=== PATIENT | female | born 1985 | race African-American/Black ===

== ENCOUNTER 2019-09-08 15:55 | Inpatient (IN) | payer MEDICAID ==
[2019-09-08] MEDS ORDERED: Lactated Ringers 1,000 ML ONE (16:04)
[2019-09-08] MEDS ORDERED: Ondansetron 4 MG/2 ML SDV IVPUSH PRN (16:06)
[2019-09-08] MEDS ORDERED: Nalbuphine 10 MG/ML Syringe IM PRN (16:08)
--- NOTE | 2019-09-08 16:47 | PCM.LDHP ---
L&D History of Present Illness - General Date of Service: 09/08/19 Admit Problem/Dx: Patient Status Order with Admit Dx/Problem 09/08/19 16:06 Patient Status [ADT] Routine Admission Diagnosis/Problem Admission Diagnosis/Problem Source of Information: Patient History Limitations: Reports: No Limitations - History of Present Illness Introduction:: Patient is a 34 y/o at 21 4/7 wks who is admitted with previable labor. Cerclage placed on 09/04 due to findings of shortened cervix on anatomy US. Has been seen off and on for pain concerns, but acutely worsened this PM. Cerclage removed in clinic and noted to be 1 cm and 90% effaced with bulging lower uterine segment - Related Data Allergies/Adverse Reactions: Allergies Allergy/AdvReac Type Severity Reaction Status Date / Time No Known Allergies Allergy Verified 09/08/19 16:21 Home Medications: Home Meds Cyclobenzaprine [Flexeril] 5 mg PO TID 09/08/19 [History] Pnv No.95/Ferrous Fum/Folic AC [ Tablet] 1 tab PO DAILY 09/08/19 [ History] cephALEXin [Keflex] 500 mg PO Q6H 09/08/19 [History] Past Medical History : 2 Para: 0 LMP (Approximate): - Past Surgical History Female Surgical History: Reports: D&C, Other (See Below) (Craig Cerclage) Social & Family History - Tobacco Use Smoking Status *Q: Never Smoker - Alcohol Use Alcohol Use History: No - Recreational Drug Use Recreational Drug Use: No H&P Review of Systems - Review of Systems: Review Of Systems: See Below General: Reports: No Symptoms Pulmonary: Reports: No Symptoms Cardiovascular: Reports: No Symptoms Gastrointestinal: Reports: Abdominal Pain Genitourinary: Reports: Incontinence Musculoskeletal: Reports: Back Pain (significant swelling and discomfort over sight of spinal done for cerclage ) Psychiatric: Reports: No Symptoms L&D Exam - Exam Exam: See Below - Vital Signs Weight: 88.904 kg - OB Specific Contraction Intensity: Moderate to Strong Movement: Active Heart Tones: Present Heart Tones per Min: 160 - Holm Score Holm Score Cervix Position: Midposition Holm Score Consistency: Soft Holm Score Effacement: >80% Holm Score Dilation: 1-2 cm Holm Score 's Station: -1 ,0 Holm Score Total: 9 - Exam General: Alert, Oriented, Cooperative Lungs: Clear to Auscultation, Normal Respiratory Effort Cardiovascular: Regular Rate, Regular Rhythm GI/Abdominal Exam: Soft, Non-Tender Genitourinary: Normal external exam Extremities: Normal Inspection - Patient Data Lab Results Last 24 hrs: Laboratory Results - last 24 hr 09/08/19 09/08/19 Range/Units 16:22 16:22 WBC 15.19 H (3.98-10.04) K/mm3 RBC 4.09 (3.98-5.22) M/mm3 Hgb 11.4 (11.2-15.7) gm/dl Hct 34.4 (34.1-44.9) % MCV 84.1 (79.4-94.8) fl MCH 27.9 (25.6-32.2) pg MCHC 33.1 (32.2-35.5) g/dl RDW Std Deviation 41.2 (36.4-46.3) fL Plt Count 293 (182-369) K/mm3 MPV 10.7 (9.4-12.3) fl Neut % (Auto) 76.5 H (34.0-71.1) % Lymph % (Auto) 16.9 L (19.3-51.7) % [place] % (Auto) 6.0 (4.7-12.5) % Eos % (Auto) 0.1 L (0.7-5.8) Baso % (Auto) 0.1 (0.1-1.2) % Neut # (Auto) 11.62 H (1.56-6.13) K/mm3 Lymph # (Auto) 2.57 (1.18-3.74) K/mm3 [place] # (Auto) 0.91 H (0.24-0.36) K/mm3 Eos # (Auto) 0.02 L (0.04-0.36) K/mm3 Baso # (Auto) 0.01 (0.01-0.08) K/mm3 AST 53 H (15-37) U/L ALT 147 H (14-59) U/L Result Diagrams: 09/08/19 16:22 - Problem List (1) 21 weeks gestation of SNOMED Code(s): 81702471 ICD Code: Z3A.21 - 21 WEEKS GESTATION OF Status: Acute Current Visit: Yes (2) labor SNOMED Code(s): 8717484 ICD Code: O60.00 - LABOR WITHOUT DELIVERY, UNSPECIFIED TRIMESTER Status: Acute Current Visit: Yes Qualifiers: labor trimester: second trimester labor delivery status: with delivery in second trimester Fetus number: single or unspecified fetus Qualified Code(s): O60.12X0 - labor second trimester with delivery second trimester, not applicable or unspecified Problem List Initiated/Reviewed/Updated: Yes Orders Last 24hrs: Active Orders 24 hr Category Date Time Status Patient Status [ADT] Routine ADT 09/08/19 16:06 Active Uterine Contraction Monitor [RC] PER UNIT ROUTINE Care 09/08/19 16:06 Active Vaginal Exam [RC] PRN Care 09/08/19 16:06 Active Vital Signs [RC] PER UNIT ROUTINE Care 09/08/19 16:06 Active FIBRINOGEN [COAG] Routine Lab 09/08/19 16:22 Received INR,PT,PROTHROMBIN TIME [COAG] Routine Lab 09/08/19 16:22 Received PTT,PARTIAL THROMBOPLSTIN TIME [COAG] Routine Lab 09/08/19 16:22 Received TYPE AND SCREEN [BBK] Stat Lab 09/08/19 16:22 Received Lactated Ringers [Ringers, Lactated] 1,000 ml Med 09/08/19 16:15 Active IV ASDIRECTED Nalbuphine [Nubain] Med 09/08/19 16:08 Active 10 mg IM Q2H PRN Ondansetron [Zofran] Med 09/08/19 16:06 Active 4 mg IVPUSH Q6H PRN Medication Orders Lactated Ringer's (Ringers, Lactated) 1,000 mls @ 125 mls/hr IV ASDIRECTED ZIYAD Nalbuphine HCl (Nubain) 10 mg IM Q2H PRN PRN Reason: Pain Ondansetron HCl (Zofran) 4 mg IVPUSH Q6H PRN PRN Reason: Nausea/Vomiting Assessment/Plan Comment:: Patient with previous incidental shortened cervix and now with continued complaints of abdominal pain over last 2 days and findings of previable/ labor. Reviewed with patient unfortunately can not resuscitate at this gestational age. She expressed understanding. Will do CBC, LFT's, PTT/PTT, Fibrinogen, and T&S. Reviewed options for pain control and given amount of pain still present at site of spinal declines epidural. Will manage with IV morphine.
[2019-09-08] MEDS ORDERED: fentaNYL 100 MCG/2 ML SDV EPIDUR PRN (16:56)
[2019-09-08] MEDS ORDERED: ePHEDrine 50 MG/ML SDV IVPUSH PRN (16:56)
[2019-09-08] MEDS ORDERED: Bupivacaine/fentaNYL/NS 100 ML Bag EPIDUR PRN (16:56)
[2019-09-08] MEDS ORDERED: diphenhydrAMINE 50 MG/ML SDV IVPUSH PRN (16:56)
[2019-09-08] MEDS ORDERED: Morphine 10 MG/ML SDV IVPUSH PRN (17:05)
[2019-09-08] MEDS ORDERED: Morphine 2 MG/ML Syringe ONE ×2 (17:06→18:24)
[2019-09-08] MEDS ORDERED: Misoprostol 200 MCG Tab PO STA (17:06)
[2019-09-08] MEDS ORDERED: Misoprostol 200 MCG Tab ONE ×2 (17:07→18:11)
[2019-09-08] MEDS ORDERED: Oxytocin/Lactated Ringers 10 UNIT/1,000 ML BAG IV SCH ×2 (17:15→19:15)
[2019-09-08] MEDS ORDERED: Misoprostol 200 MCG Tab VAG STA (17:36)
[2019-09-08] MEDS: Lactated Ringers 1,000 ML IV SCH ×3 (18:30→18:34)
[2019-09-08] MEDS ORDERED: Ibuprofen 600 MG Tab PO PRN (20:45)
[2019-09-08] MEDS ORDERED: Benzocaine/Menthol 20%-0.5% Spray 56 GM Canister TOP PRN (20:45)
[2019-09-08] MEDS ORDERED: Acetaminophen 325 MG Tab PO PRN (20:45)
[2019-09-08] MEDS ORDERED: Docusate Sodium 100 MG Cap PO PRN (20:45)
[2019-09-08] MEDS ORDERED: Witch Hazel Medicated Pads 40/Jar TOP PRN (20:45)
--- NOTE | 2019-09-08 21:51 | PCM.SN.2 ---
- Free Text/Narrative Note: [id number] Patient 5 cm with fetus noted to be trying to deliver through cervix. Patient leaking clear fluid at this time, but also with a large amount of bleeding noted on exam. Will give 400 mcg of cytotec to augment labor given bleeding. Will reassess as needed. Cynthia Christiansen
--- NOTE | 2019-09-08 21:59 | PCM.DEL ---
L & D Note - General Info Date of Service: 09/08/19 - Delivery Note Delivery Outcome: Livebirth Infant Delivery Method: Spontaneous Vaginal Delivery-Single Infant Delivery Mode: Spontaneous Presentation: Vertex Anesthesia Type: Other (see below) (IV morphine) Amniotic Fluid Description: Clear Episiotomy Type: None Laceration: None Placenta: Intact, Spontaneous Cord: 3 Vessels Estimated Blood Loss: 300 Score 1 min: 2 Score 5 min: 1 Score 10 min: 1 Delivery Comments (Free Text/Narrative):: Patient checked and found to be near complete and with parts low in vagina. Encouraged to push and deliver occurred quickly. Cord clamped and cut. 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 Patient given 600 mcg of buccal cytotec. Delivery of placenta occurred shortly thereafter. No lacerations noted. Baby delivered at 1816. No further signs of life at 1952. Time of noted. Baby weight of 402 grams. - General Info Date of Service: 09/08/19 - Patient Data Vitals - Most Recent: Last Vital Signs Temp 37.4 C 09/08/19 20:07 Pulse Resp 14 09/08/19 20:07 BP 140/46 L 09/08/19 20:07 Pulse Ox 99 09/08/19 20:07 Weight - Most Recent: 88.904 kg Lab Results Last 24 Hours: Laboratory Results - last 24 hr 09/08/19 09/08/19 09/08/19 Range/Units 16:22 16:22 16:22 WBC 15.19 H (3.98-10.04) K/mm3 RBC 4.09 (3.98-5.22) M/mm3 Hgb 11.4 (11.2-15.7) gm/dl Hct 34.4 (34.1-44.9) % MCV 84.1 (79.4-94.8) fl MCH 27.9 (25.6-32.2) pg MCHC 33.1 (32.2-35.5) g/dl RDW Std Deviation 41.2 (36.4-46.3) fL Plt Count 293 (182-369) K/mm3 MPV 10.7 (9.4-12.3) fl Neut % (Auto) 76.5 H (34.0-71.1) % Lymph % (Auto) 16.9 L (19.3-51.7) % [place] % (Auto) 6.0 (4.7-12.5) % Eos % (Auto) 0.1 L (0.7-5.8) Baso % (Auto) 0.1 (0.1-1.2) % Neut # (Auto) 11.62 H (1.56-6.13) K/mm3 Lymph # (Auto) 2.57 (1.18-3.74) K/mm3 [place] # (Auto) 0.91 H (0.24-0.36) K/mm3 Eos # (Auto) 0.02 L (0.04-0.36) K/mm3 Baso # (Auto) 0.01 (0.01-0.08) K/mm3 PT 10.3 (9.7-12.0) SECONDS INR 0.94 APTT 25 (22-31) SECONDS Fibrinogen 678 H (187-446) mg/dL AST (15-37) U/L ALT (14-59) U/L Blood Type B POSITIVE Gel Antibody Screen Negative 09/08/19 Range/Units 16:22 WBC (3.98-10.04) K/mm3 RBC (3.98-5.22) M/mm3 Hgb (11.2-15.7) gm/dl Hct (34.1-44.9) % MCV (79.4-94.8) fl MCH (25.6-32.2) pg MCHC (32.2-35.5) g/dl RDW Std Deviation (36.4-46.3) fL Plt Count (182-369) K/mm3 MPV (9.4-12.3) fl Neut % (Auto) (34.0-71.1) % Lymph % (Auto) (19.3-51.7) % [place] % (Auto) (4.7-12.5) % Eos % (Auto) (0.7-5.8) Baso % (Auto) (0.1-1.2) % Neut # (Auto) (1.56-6.13) K/mm3 Lymph # (Auto) (1.18-3.74) K/mm3 [place] # (Auto) (0.24-0.36) K/mm3 Eos # (Auto) (0.04-0.36) K/mm3 Baso # (Auto) (0.01-0.08) K/mm3 PT (9.7-12.0) SECONDS INR APTT (22-31) SECONDS Fibrinogen (187-446) mg/dL AST 53 H (15-37) U/L ALT 147 H (14-59) U/L Blood Type Gel Antibody Screen Med Orders - Current: Current Medications Acetaminophen (Tylenol) 650 mg PO Q4H PRN PRN Reason: mild pain or fever Benzocaine/Menthol (Dermoplast Pain Relief [place]) 0 gm TOP ASDIRECTED PRN PRN Reason: Perineal Comfort Measure Docusate Sodium (Colace) 100 mg PO BID PRN PRN Reason: Constipation Oxytocin/Lactated Ringer's (Pitocin In Lr 10 Units/1,000 Ml) 10 unit in 1,000 mls @ 3,000 mls/hr IV TITRATE ZIYAD; Protocol Last Admin: 09/08/19 19:30 Dose: 500 munits/min, 500 mls/hr Ibuprofen (Motrin) 600 mg PO Q6H PRN PRN Reason: Mild pain or fever Witch Dana (Tucks) 1 pad TOP ASDIRECTED PRN PRN Reason: Perineal Comfort Measure Discontinued Medications Diphenhydramine HCl (Benadryl) 25 mg IVPUSH Q6H PRN PRN Reason: pruritis Ephedrine Sulfate (Ephedrine Sulfate) 5 mg IVPUSH ASDIRECTED PRN PRN Reason: Hypotension Fentanyl (Sublimaze) 100 mcg EPIDUR Q3H PRN PRN Reason: Pain Fentanyl/Bupivacaine HCl (Fentanyl/Bupivacaine/Ns 2 Mcg-0.125% 100 Ml) 100 ml EPIDUR ASDIRECTED PRN PRN Reason: Pain Lactated Ringer's (Ringers, Lactated) Confirm Administered Dose 1,000 mls @ as directed .ROUTE .STK-MED ONE Stop: 09/08/19 16:05 Last Admin: 09/08/19 16:22 Dose: Not Given Lactated Ringer's (Ringers, Lactated) 1,000 mls @ 125 mls/hr IV ASDIRECTED ZIYAD Last Admin: 09/08/19 18:34 Dose: 125 mls/hr Oxytocin/Lactated Ringer's (Pitocin In Lr 10 Units/1,000 Ml) 10 unit in 1,000 mls @ 500 mls/hr IV TITRATE ZIYAD; Protocol Misoprostol (Cytotec) 600 mcg PO NOW STA Stop: 09/08/19 17:07 Last Admin: 09/08/19 18:53 Dose: 600 mcg Misoprostol (Cytotec) Confirm Administered Dose 600 mcg .ROUTE .STK-MED ONE Stop: 09/08/19 17:08 Last Admin: 09/08/19 17:50 Dose: Not Given Misoprostol (Cytotec) Confirm Administered Dose 400 mcg .ROUTE .STK-MED ONE Stop: 09/08/19 18:12 Last Admin: 09/08/19 19:17 Dose: Not Given Misoprostol (Cytotec) 400 mcg VAG NOW STA Stop: 09/08/19 17:37 Last Admin: 09/08/19 18:12 Dose: 400 mcg Morphine Sulfate (Morphine) 6 mg IVPUSH Q1H PRN PRN Reason: Pain Last Admin: 09/08/19 18:25 Dose: 6 mg Morphine Sulfate (Morphine) Confirm Administered Dose 2 mg .ROUTE .STK-MED ONE Stop: 09/08/19 17:07 Last Admin: 09/08/19 17:50 Dose: Not Given Morphine Sulfate (Morphine) Confirm Administered Dose 6 mg .ROUTE .STK-MED ONE Stop: 09/08/19 18:25 Last Admin: 09/08/19 17:00 Dose: 6 mg Nalbuphine HCl (Nubain) 10 mg IM Q2H PRN PRN Reason: Pain Last Admin: 09/08/19 18:34 Dose: 10 mg Ondansetron HCl (Zofran) 4 mg IVPUSH Q6H PRN PRN Reason: Nausea/Vomiting - Problem List & Annotations (1) 21 weeks gestation of SNOMED Code(s): 32622195 Code(s): Z3A.21 - 21 WEEKS GESTATION OF Status: Acute Current Visit: Yes (2) labor SNOMED Code(s): 4958170 Code(s): O60.00 - LABOR WITHOUT DELIVERY, UNSPECIFIED TRIMESTER Status: Acute Current Visit: Yes Qualifiers: labor trimester: second trimester labor delivery status: with delivery in second trimester Fetus number: single or unspecified fetus Qualified Code(s): O60.12X0 - labor second trimester with delivery second trimester, not applicable or unspecified (3) Vaginal delivery SNOMED Code(s): 793241254 Code(s): O80 - ENCOUNTER FOR FULL-TERM UNCOMPLICATED DELIVERY Status: Acute Current Visit: Yes - Problem List Review Problem List Initiated/Reviewed/Updated: Yes - My Orders Last 24 Hours: My Active Orders 09/08/19 16:06 Uterine Contraction Monitor [RC] PER UNIT ROUTINE Vaginal Exam [RC] PRN 09/08/19 17:44 PATIENT RETYPE [BBK] Routine 09/08/19 19:04 Resuscitation Status Routine 09/08/19 19:15 Oxytocin/Lactated Ringers [Pitocin in LR 10 Units/1,000 ML] 10 unit in 1,000 ml IV TITRATE 09/08/19 20:45 Activity as Tolerated [RC] PER UNIT ROUTINE Vital Signs [RC] ASDIRECTED Acetaminophen [Tylenol] 650 mg PO Q4H PRN Benzocaine/Menthol [Dermoplast Pain Relief [place]] See Dose Instructions TOP ASDIRECTED PRN Docusate Sodium [Colace] 100 mg PO BID PRN Ibuprofen [Motrin] 600 mg PO Q6H PRN witch Dana [Tucks] 1 pad TOP ASDIRECTED PRN Assess Lochia [WOMSER] Per Unit Routine Assess Uterine Involution [WOMSER] Per Unit Routine Breast Pump [WOMSER] Per Unit Routine Heat Therapy [OM.PC] PRN Ice Therapy [OM.PC] Per Unit Routine Perineal Care [OM.PC] Per Unit Routine Peripheral IV Discontinue [OM.PC] Routine Sitz Bath [OM.PC] Per Unit Routine 09/08/19 Dinner Regular Diet [DIET] 09/09/19 20:45 Heat Therapy [OM.PC] PRN - Assessment Assessment:: PPD#0 - Plan Plan:: Routine cares Will collect mementos for mother from her daughter Discharge home in am
--- NOTE | 2019-09-09 06:52 | PCM.PNPP ---
- General Info Date of Service: 09/09/19 Functional Status: Reports: Pain Controlled, Tolerating Diet, Ambulating, Urinating - Review of Systems General: Reports: No Symptoms Pulmonary: Reports: No Symptoms Cardiovascular: Reports: No Symptoms Gastrointestinal: Reports: No Symptoms Genitourinary: Reports: No Symptoms Musculoskeletal: Reports: No Symptoms Neurological: Reports: No Symptoms - Patient Data Vital Signs - Most Recent: Last Vital Signs Temp 37.2 C 09/09/19 03:00 Pulse 102 H 09/09/19 03:00 Resp 16 09/09/19 03:00 BP 93/57 L 09/09/19 03:00 Pulse Ox 96 09/09/19 03:00 Weight - Most Recent: 88.904 kg Lab Results - Last 24 Hours: Laboratory Results - last 24 hr 09/08/19 09/08/19 09/08/19 Range/Units 16:22 16:22 16:22 WBC 15.19 H (3.98-10.04) K/mm3 RBC 4.09 (3.98-5.22) M/mm3 Hgb 11.4 (11.2-15.7) gm/dl Hct 34.4 (34.1-44.9) % MCV 84.1 (79.4-94.8) fl MCH 27.9 (25.6-32.2) pg MCHC 33.1 (32.2-35.5) g/dl RDW Std Deviation 41.2 (36.4-46.3) fL Plt Count 293 (182-369) K/mm3 MPV 10.7 (9.4-12.3) fl Neut % (Auto) 76.5 H (34.0-71.1) % Lymph % (Auto) 16.9 L (19.3-51.7) % [place] % (Auto) 6.0 (4.7-12.5) % Eos % (Auto) 0.1 L (0.7-5.8) Baso % (Auto) 0.1 (0.1-1.2) % Neut # (Auto) 11.62 H (1.56-6.13) K/mm3 Lymph # (Auto) 2.57 (1.18-3.74) K/mm3 [place] # (Auto) 0.91 H (0.24-0.36) K/mm3 Eos # (Auto) 0.02 L (0.04-0.36) K/mm3 Baso # (Auto) 0.01 (0.01-0.08) K/mm3 PT 10.3 (9.7-12.0) SECONDS INR 0.94 APTT 25 (22-31) SECONDS Fibrinogen 678 H (187-446) mg/dL AST (15-37) U/L ALT (14-59) U/L Blood Type B POSITIVE Gel Antibody Screen Negative 09/08/19 Range/Units 16:22 WBC (3.98-10.04) K/mm3 RBC (3.98-5.22) M/mm3 Hgb (11.2-15.7) gm/dl Hct (34.1-44.9) % MCV (79.4-94.8) fl MCH (25.6-32.2) pg MCHC (32.2-35.5) g/dl RDW Std Deviation (36.4-46.3) fL Plt Count (182-369) K/mm3 MPV (9.4-12.3) fl Neut % (Auto) (34.0-71.1) % Lymph % (Auto) (19.3-51.7) % [place] % (Auto) (4.7-12.5) % Eos % (Auto) (0.7-5.8) Baso % (Auto) (0.1-1.2) % Neut # (Auto) (1.56-6.13) K/mm3 Lymph # (Auto) (1.18-3.74) K/mm3 [place] # (Auto) (0.24-0.36) K/mm3 Eos # (Auto) (0.04-0.36) K/mm3 Baso # (Auto) (0.01-0.08) K/mm3 PT (9.7-12.0) SECONDS INR APTT (22-31) SECONDS Fibrinogen (187-446) mg/dL AST 53 H (15-37) U/L ALT 147 H (14-59) U/L Blood Type Gel Antibody Screen Med Orders - Current: Current Medications Acetaminophen (Tylenol) 650 mg PO Q4H PRN PRN Reason: mild pain or fever Benzocaine/Menthol (Dermoplast Pain Relief [place]) 0 gm TOP ASDIRECTED PRN PRN Reason: Perineal Comfort Measure Docusate Sodium (Colace) 100 mg PO BID PRN PRN Reason: Constipation Oxytocin/Lactated Ringer's (Pitocin In Lr 10 Units/1,000 Ml) 10 unit in 1,000 mls @ 3,000 mls/hr IV TITRATE ZIYAD; Protocol Last Admin: 09/08/19 19:30 Dose: 500 munits/min, 500 mls/hr Ibuprofen (Motrin) 600 mg PO Q6H PRN PRN Reason: Mild pain or fever Last Admin: 09/09/19 00:32 Dose: 600 mg Witch Dana (Tucks) 1 pad TOP ASDIRECTED PRN PRN Reason: Perineal Comfort Measure Discontinued Medications Diphenhydramine HCl (Benadryl) 25 mg IVPUSH Q6H PRN PRN Reason: pruritis Ephedrine Sulfate (Ephedrine Sulfate) 5 mg IVPUSH ASDIRECTED PRN PRN Reason: Hypotension Fentanyl (Sublimaze) 100 mcg EPIDUR Q3H PRN PRN Reason: Pain Fentanyl/Bupivacaine HCl (Fentanyl/Bupivacaine/Ns 2 Mcg-0.125% 100 Ml) 100 ml EPIDUR ASDIRECTED PRN PRN Reason: Pain Lactated Ringer's (Ringers, Lactated) Confirm Administered Dose 1,000 mls @ as directed .ROUTE .STK-MED ONE Stop: 09/08/19 16:05 Last Admin: 09/08/19 16:22 Dose: Not Given Lactated Ringer's (Ringers, Lactated) 1,000 mls @ 125 mls/hr IV ASDIRECTED ZIYAD Last Admin: 09/08/19 18:34 Dose: 125 mls/hr Oxytocin/Lactated Ringer's (Pitocin In Lr 10 Units/1,000 Ml) 10 unit in 1,000 mls @ 500 mls/hr IV TITRATE ZIYAD; Protocol Misoprostol (Cytotec) 600 mcg PO NOW STA Stop: 09/08/19 17:07 Last Admin: 09/08/19 18:53 Dose: 600 mcg Misoprostol (Cytotec) Confirm Administered Dose 600 mcg .ROUTE .STK-MED ONE Stop: 09/08/19 17:08 Last Admin: 09/08/19 17:50 Dose: Not Given Misoprostol (Cytotec) Confirm Administered Dose 400 mcg .ROUTE .STK-MED ONE Stop: 09/08/19 18:12 Last Admin: 09/08/19 19:17 Dose: Not Given Misoprostol (Cytotec) 400 mcg VAG NOW STA Stop: 09/08/19 17:37 Last Admin: 09/08/19 18:12 Dose: 400 mcg Morphine Sulfate (Morphine) 6 mg IVPUSH Q1H PRN PRN Reason: Pain Last Admin: 09/08/19 18:25 Dose: 6 mg Morphine Sulfate (Morphine) Confirm Administered Dose 2 mg .ROUTE .STK-MED ONE Stop: 09/08/19 17:07 Last Admin: 09/08/19 17:50 Dose: Not Given Morphine Sulfate (Morphine) Confirm Administered Dose 6 mg .ROUTE .STK-MED ONE Stop: 09/08/19 18:25 Last Admin: 09/08/19 17:00 Dose: 6 mg Nalbuphine HCl (Nubain) 10 mg IM Q2H PRN PRN Reason: Pain Last Admin: 09/08/19 18:34 Dose: 10 mg Ondansetron HCl (Zofran) 4 mg IVPUSH Q6H PRN PRN Reason: Nausea/Vomiting - Interaction Infant Disposition, : Not Applicable Support Person: Other (see below) - Recovery Exam Fundal Tone: Firm Fundal Level: 1 Fingerbreadths Below Umbilicus Fundal Placement: Midline Lochia Amount: Scant Perineum Description: Intact, Minimal Bruising/Swelling Bladder Status: Voiding - Exam General: Alert, Oriented, Cooperative GI/Abdominal Exam: Soft, Non-Tender Extremities: Normal Inspection - Problem List & Annotations (1) 21 weeks gestation of SNOMED Code(s): 87685509 Code(s): Z3A.21 - 21 WEEKS GESTATION OF Status: Acute (2) labor SNOMED Code(s): 0468015 Code(s): O60.00 - LABOR WITHOUT DELIVERY, UNSPECIFIED TRIMESTER Status: Acute Qualifiers: labor trimester: second trimester labor delivery status: with delivery in second trimester Fetus number: single or unspecified fetus Qualified Code(s): O60.12X0 - labor second trimester with delivery second trimester, not applicable or unspecified (3) Vaginal delivery SNOMED Code(s): 879110242 Code(s): O80 - ENCOUNTER FOR FULL-TERM UNCOMPLICATED DELIVERY Status: Acute - Problem List Review Problem List Initiated/Reviewed/Updated: Yes - My Orders Last 24 Hours: My Active Orders 09/08/19 16:06 Uterine Contraction Monitor [RC] PER UNIT ROUTINE Vaginal Exam [RC] PRN 09/08/19 19:04 Resuscitation Status Routine 09/08/19 19:15 Oxytocin/Lactated Ringers [Pitocin in LR 10 Units/1,000 ML] 10 unit in 1,000 ml IV TITRATE 09/08/19 20:45 Activity as Tolerated [RC] PER UNIT ROUTINE Vital Signs [RC] 03,09,15,21 Acetaminophen [Tylenol] 650 mg PO Q4H PRN Benzocaine/Menthol [Dermoplast Pain Relief [place]] See Dose Instructions TOP ASDIRECTED PRN Docusate Sodium [Colace] 100 mg PO BID PRN Ibuprofen [Motrin] 600 mg PO Q6H PRN witch Dana [Tucks] 1 pad TOP ASDIRECTED PRN Assess Lochia [WOMSER] Per Unit Routine Assess Uterine Involution [WOMSER] Per Unit Routine Breast Pump [WOMSER] Per Unit Routine Heat Therapy [OM.PC] PRN Ice Therapy [OM.PC] Per Unit Routine Perineal Care [OM.PC] Per Unit Routine Peripheral IV Discontinue [OM.PC] Routine Sitz Bath [OM.PC] Per Unit Routine 09/08/19 Dinner Regular Diet [DIET] 09/09/19 20:45 Heat Therapy [OM.PC] PRN - Assessment Assessment:: PPD#1 - Plan Plan:: Routine care Will discharge home today Follow up in 3 weeks
--- NOTE | 2019-09-09 06:55 | PCM.DCSUM1 ---
Discharge Summary - Discharge Data Discharge Date: 09/09/19 Discharge Disposition: Home, Self-Care 01 Condition: Good - Referral to Home Health Primary Care Physician: Cynthia Christiansen MD - Discharge Diagnosis/Problem(s) (1) 21 weeks gestation of SNOMED Code(s): 97814088 ICD Code: Z3A.21 - 21 WEEKS GESTATION OF Status: Acute (2) labor SNOMED Code(s): 4622277 ICD Code: O60.00 - LABOR WITHOUT DELIVERY, UNSPECIFIED TRIMESTER Status: Acute Qualifiers: labor trimester: second trimester labor delivery status: with delivery in second trimester Fetus number: single or unspecified fetus Qualified Code(s): O60.12X0 - labor second trimester with delivery second trimester, not applicable or unspecified (3) Vaginal delivery SNOMED Code(s): 349935426 ICD Code: O80 - ENCOUNTER FOR FULL-TERM UNCOMPLICATED DELIVERY Status: Acute - Patient Summary/Data Complications: None Consults: None Hospital Course: Patient is a 34 y/o at 21 4/7 wks who had previously documented cervical shortening on anatomy US. Had a cerclage placed, but afterwards continued to have abdominal pain. Seen in clinic with obvious signs of labor and had cerclage removed. Was then admitted for labor management. Overall did well and did end up delivering her daughter who was born alive. See delivery note for full details. did well and was discharged home on PPD#1 - Patient Instructions Diet: Regular Diet as Tolerated Activity: As Tolerated Activity, Other: Pelvic rest for 6 weeks Driving: May Drive Today Showering/Bathing: May Shower Showering/Bathing, Other: May Bathe Notify Provider of: Fever, Increased Pain, Swelling and Redness, Drainage, Nausea and/or Vomiting - Discharge Plan *PRESCRIPTION DRUG MONITORING PROGRAM REVIEWED*: No *COPY OF PRESCRIPTION DRUG MONITORING REPORT IN PATIENT WOOD: No Home Medications: Home Meds Pnv No.95/Ferrous Fum/Folic AC [ Tablet] 1 tab PO DAILY 09/08/19 [ History] Docusate Sodium [Colace] 100 mg PO BID PRN cap 09/09/19 [Rx] Ibuprofen [Motrin] 600 mg PO Q6H PRN tablet 09/09/19 [Rx] Patient Handouts: Vaginal Delivery, Loss, Care After Referrals: Cynthia Christiansen MD [Primary Care Provider] - (3 weeks for check, please call for appointment. ) - Discharge Summary/Plan Comment DC Time >30 min.: No - Patient Data Vitals - Most Recent: Last Vital Signs Temp 37.2 C 09/09/19 03:00 Pulse 102 H 09/09/19 03:00 Resp 16 09/09/19 03:00 BP 93/57 L 09/09/19 03:00 Pulse Ox 96 09/09/19 03:00 Weight - Most Recent: 88.904 kg Lab Results - Last 24 hrs: Laboratory Results - last 24 hr 09/08/19 09/08/19 09/08/19 Range/Units 16:22 16:22 16:22 WBC 15.19 H (3.98-10.04) K/mm3 RBC 4.09 (3.98-5.22) M/mm3 Hgb 11.4 (11.2-15.7) gm/dl Hct 34.4 (34.1-44.9) % MCV 84.1 (79.4-94.8) fl MCH 27.9 (25.6-32.2) pg MCHC 33.1 (32.2-35.5) g/dl RDW Std Deviation 41.2 (36.4-46.3) fL Plt Count 293 (182-369) K/mm3 MPV 10.7 (9.4-12.3) fl Neut % (Auto) 76.5 H (34.0-71.1) % Lymph % (Auto) 16.9 L (19.3-51.7) % [place] % (Auto) 6.0 (4.7-12.5) % Eos % (Auto) 0.1 L (0.7-5.8) Baso % (Auto) 0.1 (0.1-1.2) % Neut # (Auto) 11.62 H (1.56-6.13) K/mm3 Lymph # (Auto) 2.57 (1.18-3.74) K/mm3 [place] # (Auto) 0.91 H (0.24-0.36) K/mm3 Eos # (Auto) 0.02 L (0.04-0.36) K/mm3 Baso # (Auto) 0.01 (0.01-0.08) K/mm3 PT 10.3 (9.7-12.0) SECONDS INR 0.94 APTT 25 (22-31) SECONDS Fibrinogen 678 H (187-446) mg/dL AST (15-37) U/L ALT (14-59) U/L Blood Type B POSITIVE Gel Antibody Screen Negative 09/08/19 Range/Units 16:22 WBC (3.98-10.04) K/mm3 RBC (3.98-5.22) M/mm3 Hgb (11.2-15.7) gm/dl Hct (34.1-44.9) % MCV (79.4-94.8) fl MCH (25.6-32.2) pg MCHC (32.2-35.5) g/dl RDW Std Deviation (36.4-46.3) fL Plt Count (182-369) K/mm3 MPV (9.4-12.3) fl Neut % (Auto) (34.0-71.1) % Lymph % (Auto) (19.3-51.7) % [place] % (Auto) (4.7-12.5) % Eos % (Auto) (0.7-5.8) Baso % (Auto) (0.1-1.2) % Neut # (Auto) (1.56-6.13) K/mm3 Lymph # (Auto) (1.18-3.74) K/mm3 [place] # (Auto) (0.24-0.36) K/mm3 Eos # (Auto) (0.04-0.36) K/mm3 Baso # (Auto) (0.01-0.08) K/mm3 PT (9.7-12.0) SECONDS INR APTT (22-31) SECONDS Fibrinogen (187-446) mg/dL AST 53 H (15-37) U/L ALT 147 H (14-59) U/L Blood Type Gel Antibody Screen Med Orders - Current: Current Medications Acetaminophen (Tylenol) 650 mg PO Q4H PRN PRN Reason: mild pain or fever Benzocaine/Menthol (Dermoplast Pain Relief [place]) 0 gm TOP ASDIRECTED PRN PRN Reason: Perineal Comfort Measure Docusate Sodium (Colace) 100 mg PO BID PRN PRN Reason: Constipation Oxytocin/Lactated Ringer's (Pitocin In Lr 10 Units/1,000 Ml) 10 unit in 1,000 mls @ 3,000 mls/hr IV TITRATE ZIYAD; Protocol Last Admin: 09/08/19 19:30 Dose: 500 munits/min, 500 mls/hr Ibuprofen (Motrin) 600 mg PO Q6H PRN PRN Reason: Mild pain or fever Last Admin: 09/09/19 00:32 Dose: 600 mg Witch Shyla (Tucks) 1 pad TOP ASDIRECTED PRN PRN Reason: Perineal Comfort Measure Discontinued Medications Diphenhydramine HCl (Benadryl) 25 mg IVPUSH Q6H PRN PRN Reason: pruritis Ephedrine Sulfate (Ephedrine Sulfate) 5 mg IVPUSH ASDIRECTED PRN PRN Reason: Hypotension Fentanyl (Sublimaze) 100 mcg EPIDUR Q3H PRN PRN Reason: Pain Fentanyl/Bupivacaine HCl (Fentanyl/Bupivacaine/Ns 2 Mcg-0.125% 100 Ml) 100 ml EPIDUR ASDIRECTED PRN PRN Reason: Pain Lactated Ringer's (Ringers, Lactated) Confirm Administered Dose 1,000 mls @ as directed .ROUTE .STK-MED ONE Stop: 09/08/19 16:05 Last Admin: 09/08/19 16:22 Dose: Not Given Lactated Ringer's (Ringers, Lactated) 1,000 mls @ 125 mls/hr IV ASDIRECTED ZIYAD Last Admin: 09/08/19 18:34 Dose: 125 mls/hr Oxytocin/Lactated Ringer's (Pitocin In Lr 10 Units/1,000 Ml) 10 unit in 1,000 mls @ 500 mls/hr IV TITRATE ZIYAD; Protocol Misoprostol (Cytotec) 600 mcg PO NOW STA Stop: 09/08/19 17:07 Last Admin: 09/08/19 18:53 Dose: 600 mcg Misoprostol (Cytotec) Confirm Administered Dose 600 mcg .ROUTE .STK-MED ONE Stop: 09/08/19 17:08 Last Admin: 09/08/19 17:50 Dose: Not Given Misoprostol (Cytotec) Confirm Administered Dose 400 mcg .ROUTE .STK-MED ONE Stop: 09/08/19 18:12 Last Admin: 09/08/19 19:17 Dose: Not Given Misoprostol (Cytotec) 400 mcg VAG NOW STA Stop: 09/08/19 17:37 Last Admin: 09/08/19 18:12 Dose: 400 mcg Morphine Sulfate (Morphine) 6 mg IVPUSH Q1H PRN PRN Reason: Pain Last Admin: 09/08/19 18:25 Dose: 6 mg Morphine Sulfate (Morphine) Confirm Administered Dose 2 mg .ROUTE .STK-MED ONE Stop: 09/08/19 17:07 Last Admin: 09/08/19 17:50 Dose: Not Given Morphine Sulfate (Morphine) Confirm Administered Dose 6 mg .ROUTE .STK-MED ONE Stop: 09/08/19 18:25 Last Admin: 09/08/19 17:00 Dose: 6 mg Nalbuphine HCl (Nubain) 10 mg IM Q2H PRN PRN Reason: Pain Last Admin: 09/08/19 18:34 Dose: 10 mg Ondansetron HCl (Zofran) 4 mg IVPUSH Q6H PRN PRN Reason: Nausea/Vomiting
== END 2019-09-09 11:15 | disposition home or self-care (01) | DRG 807 ==
LOC: JD.ED 15:55 → JD.OBCHECK 15:55 → JD.OB 15:56 → EDSTATUS 16:03 → OBSVTOIN 18:51 → JD.OB 18:52
PROVIDERS: ADMIT Obstetrics & Gynecology; ATTEND Obstetrics & Gynecology
PROC: 10E0XZZ Delivery of Products of Conception, External Approach (ICD-10-PCS; principal; 2019-09-08)
DX: O60.12X0 Preterm labor second trimester with preterm delivery second trimester, not applicable or unspecified (principal); Z37.0 Single live birth; Z3A.21 21 weeks gestation of pregnancy
CPT/HCPCS: 36415; 59409; 84450; 84460; 85025; 85384; 85610; 85730; 86850; 86900; 86901; A9270-GY; J2270; J2300; J2590; J7120

== ENCOUNTER 2019-10-05 11:33 | Observation (INO) | payer SELFPAY ==
[2019-10-05] MEDS ORDERED: Alum Hydrox/Mag Hydrox/Simeth 30 ML, Lidocaine 2% 15 ML PO ONE ×2 (12:15)
--- NOTE | 2019-10-05 12:21 | EDM.PDOC ---
ED HPI GENERAL MEDICAL PROBLEM - General Chief Complaint: Abdominal Pain Stated Complaint: STOMACH PAIN Time Seen by Provider: 10/05/19 11:58 Source of Information: Reports: Patient, Old Records (miscarriage from 09/07), RN Notes Reviewed History Limitations: Reports: No Limitations - History of Present Illness INITIAL COMMENTS - FREE TEXT/NARRATIVE: Patient is a 34-year-old female who presents to the ED for evaluation of her stomach pain. Patient notes that this developed at about 10 AM, and has been steady and sharp, and has not relented since that has been present. Patient notes that she did eat breakfast at around 9 AM, and does not recall eating fatty foods. She denies any nausea or vomiting with this. She states she did have a bowel movement this morning and this was normal for her. Patient notes that she is having a small amount of creamy colored vaginal discharge that is blood-tinged. She has had a recent spontaneous miscarriage at 21 weeks gestation, on 07 September, that she states went uneventful. Patient denies any dysuria, frequency or urgency, any fevers or chills, cough or shortness of breath, she denies any history of heartburn or ulcers. She did not take any sort of pain medication for this. Patient denies any abdominal surgeries that she has had, states that she did have a cerclage placed on September 04 for her cervical insufficiency, but had the resultant spontaneous miscarriage on September 07. Abdomen Pain Score (Numeric/FACES): 8 - Related Data Allergies Allergy/AdvReac Type Severity Reaction Status Date / Time No Known Allergies Allergy Verified 09/08/19 16:21 Home Meds: Home Meds Docusate Sodium [Colace] 100 mg PO BID PRN cap 09/09/19 [Rx] 147/Iron/Folic Acid [Azesco Tablet] 1 tab PO DAILY 10/05/19 [History] 95/Iron Fum/Folic/Dha [ + Dha Combo Pack] 1 tab PO DAILY 10/05/19 [History] Past Medical History - Past Health History Medical/Surgical History: Denies Medical/Surgical History WELCOME HOSTESS History: Reports: , Spontaneous , Other (See Below) : 2 Para: 0 Other WELCOME HOSTESS History: miscarriage at 21 weeks gestation 09/08/2019 - Past Surgical History Female Surgical History: Reports: D&C Social & Family History - Family History Family Medical History: Noncontributory - Tobacco Use Smoking Status *Q: Never Smoker - Caffeine Use Caffeine Use: Reports: None - Recreational Drug Use Recreational Drug Use: No ED ROS GENERAL - Review of Systems Review Of Systems: Comprehensive ROS is negative, except as noted in HPI. ED EXAM, GI/ABD - Physical Exam Exam: See Below Exam Limited By: No Limitations General Appearance: Alert, WD/WN, No Apparent Distress Eyes: Bilateral: Normal Appearance Ears: Normal External Exam Nose: Normal Inspection Throat/Mouth: Normal Inspection, Normal Lips, Normal Teeth, Normal Gums, Normal Oropharynx, Normal Voice, No Airway Compromise Head: Atraumatic, Normocephalic Neck: Normal Inspection Respiratory/Chest: No Respiratory Distress, Lungs Clear, Normal Breath Sounds, No Accessory Muscle Use, Chest Non-Tender Cardiovascular: Normal Peripheral Pulses, Regular Rate, Rhythm, No Murmur GI/Abdominal Exam: Normal Bowel Sounds, Soft, Non-Tender, No Distention, No Mass Extremities: Normal Inspection, Normal Capillary Refill Neurological: Alert, Oriented, Normal Cognition, No Motor/Sensory Deficits Psychiatric: Normal Affect, Normal Mood Skin Exam: Warm, Dry, Intact, Normal Color, No Rash Course - Vital Signs Last Recorded V/S: Last Vital Signs Temp 7.9 F L 10/05/19 12:06 Pulse 90 10/05/19 12:06 Resp 20 10/05/19 12:06 BP 120/83 10/05/19 12:06 Pulse Ox 100 10/05/19 12:06 - Orders/Labs/Meds Orders: Active Orders 24 hr Category Date Time Status Notify Provider Consults [RC] ASDIRECTED Care 10/05/19 15:48 Ordered Consult to Physician [CONS] Stat Cons 10/05/19 15:46 Ordered Labs: Laboratory Tests 10/05/19 10/05/19 10/05/19 Range/Units 12:30 12:30 12:45 WBC 8.33 (3.98-10.04) K/mm3 RBC 5.51 H (3.98-5.22) M/mm3 Hgb 15.1 D (11.2-15.7) gm/dl Hct 46.0 H (34.1-44.9) % MCV 83.5 (79.4-94.8) fl MCH 27.4 (25.6-32.2) pg MCHC 32.8 (32.2-35.5) g/dl RDW Std Deviation 41.4 (36.4-46.3) fL Plt Count 266 (182-369) K/mm3 MPV 11.3 (9.4-12.3) fl Neutrophils % (Manual) 55 (40-60) % Band Neutrophils % 0 (0-10) % Lymphocytes % (Manual) 39 (20-40) % Atypical Lymphs % 0 % Monocytes % (Manual) 6 (2-10) % Eosinophils % (Manual) 0 L (0.7-5.8) % Basophils % (Manual) 0 L (0.1-1.2) Platelet Estimate Adequate RBC Morph Comment Normal Sodium 139 (136-145) mEq/L Potassium 3.6 (3.5-5.1) mEq/L Chloride 102 (98-107) mEq/L Carbon Dioxide 25 (21-32) mEq/L Anion Gap 15.6 H (5-15) BUN 6 L (7-18) mg/dL Creatinine 0.7 (0.55-1.02) mg/dL Est Cr Clr Drug Dosing 85.45 mL/min Estimated GFR (MDRD) > 60 (>60) mL/min BUN/Creatinine Ratio 8.6 L (14-18) Glucose 78 (74-106) mg/dL Calcium 9.7 (8.5-10.1) mg/dL Total Bilirubin 0.6 (0.2-1.0) mg/dL GGT 250 H (5-55) U/L AST 166 H (15-37) U/L ALT 76 H (14-59) U/L Alkaline Phosphatase 127 H (46-116) U/L Total Protein 8.7 H (6.4-8.2) g/dl Albumin 4.3 (3.4-5.0) g/dl Globulin 4.4 gm/dL Albumin/Globulin Ratio 1.0 (1-2) Lipase 137 (73-393) U/L Urine Color (Yellow) Urine Appearance (Clear) Urine pH (5.0-8.0) Ur Specific Brewer (1.005-1.030) Urine Protein (Negative) Urine Glucose (UA) (Negative) Urine Ketones (Negative) Urine Occult Blood (Negative) Urine Nitrite (Negative) Urine Bilirubin (Negative) Urine Urobilinogen (0.2-1.0) Ur Leukocyte Esterase (Negative) Urine RBC (0-5) /hpf Urine WBC (0-5) /hpf Ur Squamous Epith Cells (0-5) /hpf Urine Bacteria (FEW) /hpf Urine Mucus (FEW) /hpf // Range/Units 13:20 WBC (3.98-10.04) K/mm3 RBC (3.98-5.22) M/mm3 Hgb (11.2-15.7) gm/dl Hct (34.1-44.9) % MCV (79.4-94.8) fl MCH (25.6-32.2) pg MCHC (32.2-35.5) g/dl RDW Std Deviation (36.4-46.3) fL Plt Count (182-369) K/mm3 MPV (9.4-12.3) fl Neutrophils % (Manual) (40-60) % Band Neutrophils % (0-10) % Lymphocytes % (Manual) (20-40) % Atypical Lymphs % % Monocytes % (Manual) (2-10) % Eosinophils % (Manual) (0.7-5.8) % Basophils % (Manual) (0.1-1.2) Platelet Estimate RBC Morph Comment Sodium (136-145) mEq/L Potassium (3.5-5.1) mEq/L Chloride (98-107) mEq/L Carbon Dioxide (21-32) mEq/L Anion Gap (5-15) BUN (7-18) mg/dL Creatinine (0.55-1.02) mg/dL Est Cr Clr Drug Dosing mL/min Estimated GFR (MDRD) (>60) mL/min BUN/Creatinine Ratio (14-18) Glucose (74-106) mg/dL Calcium (8.5-10.1) mg/dL Total Bilirubin (0.2-1.0) mg/dL GGT (5-55) U/L AST (15-37) U/L ALT (14-59) U/L Alkaline Phosphatase (46-116) U/L Total Protein (6.4-8.2) g/dl Albumin (3.4-5.0) g/dl Globulin gm/dL Albumin/Globulin Ratio (1-2) Lipase (73-393) U/L Urine Color Yellow (Yellow) Urine Appearance Clear (Clear) Urine pH 8.5 H (5.0-8.0) Ur Specific [place] 1.020 (1.005-1.030) Urine Protein Negative (Negative) Urine Glucose (UA) Negative (Negative) Urine Ketones Negative (Negative) Urine Occult Blood Negative (Negative) Urine Nitrite Negative (Negative) Urine Bilirubin Negative (Negative) Urine Urobilinogen 1.0 (0.2-1.0) Ur Leukocyte Esterase Negative (Negative) Urine RBC Not seen (0-5) /hpf Urine WBC Not seen (0-5) /hpf Ur Squamous Epith Cells 0-5 (0-5) /hpf Urine Bacteria Few (FEW) /hpf Urine Mucus Not seen (FEW) /hpf Meds: Medications Discontinued Medications Generic Name Dose Route Start Last Admin Trade Name Freq PRN Reason Stop Dose Admin Al Hydroxide/Mg Hydroxide 30 0 ml 10/05/19 12:15 10/05/19 12:39 ml/ Lidocaine HCl 15 ml PO 10/05/19 12:16 45 ml ONETIME ONE Administration Hydromorphone HCl 0.5 mg 10/05/19 14:20 10/05/19 14:32 Dilaudid IM 10/05/19 14:21 0.5 mg ONETIME ONE Administration Hyoscyamine 0.125 mg 10/05/19 13:46 10/05/19 14:04 Hyomax-Sl SL 10/05/19 13:47 0.125 mg ONETIME ONE Administration Ondansetron HCl 4 mg 10/05/19 14:21 10/05/19 14:31 Zofran Odt PO 10/05/19 14:22 4 mg ONETIME ONE Administration - Re-Assessments/Exams Free Text/Narrative Re-Assessment/Exam: 10/05/19 12:22 Patient presents to the ED for her mid to upper abdominal pain. Have ordered basic labs, flat and upright abdomen x-ray along with a GI cocktail to see if this does not help some of her pain. 10/05/19 13:29 Patient's CBC is within normal limits, metabolic panel demonstrates increased AST of 166, increased ALT at 76, and increased ALP 127, total bili is 0.6 which is within normal limits, GGT is still pending. Hepatobiliary colic is suspected as etiology of her pain. 10/05/19 14:09 Abdomen x-ray is done, and nothing acute is appreciated. Patient does not appear to be constipated by my visualization or by Dr. Knott's as well. Patient's pain was not much better after the GI cocktail, so I did order a tab the Levsin for pain relief. 10/05/19 14:43 GGT is elevated at 250, lipase is within normal limits. Patient is not suffering from pancreatitis. Patient still was not getting much pain relief from the Levsin, I did order 0.5mg IM dilaudid for pain management and 4mg ODT zofran. Since the patient's last meal was at 9AM, I will order gallbladder US for further evaluation of potential gallstones. 10/05/19 15:52 Ultrasound demonstrates small scattered stones with a small amount of sludge seen. No biliary duct dilatation seen. Gallbladder shows possible minimal gallbladder wall thickening with possible minimal pericholecystic fluid around the portion of the gallbladder, consistent with early cholecystitis. I did call Dr. Singh and he will come in to evaluate the patient for further management. Departure - Departure Time of Disposition: 15:53 Disposition: Refer to Observation Condition: Good Clinical Impression: Cholecystitis - Discharge Information *PRESCRIPTION DRUG MONITORING PROGRAM REVIEWED*: No *COPY OF PRESCRIPTION DRUG MONITORING REPORT IN PATIENT WOOD: No Referrals: Cynthia Christiansen MD [Primary Care Provider] - Forms: ED Department Discharge Sepsis Event Note (ED) - Evaluation Sepsis Screening Result: No Definite Risk - Focused Exam Vital Signs: Vital Signs Temp Pulse Resp BP Pulse Ox 10/05/19 12:06 7.9 F L 90 20 120/83 100 - My Orders Last 24 Hours: My Active Orders 10/05/19 15:46 Consult to Physician [CONS] Stat 10/05/19 15:48 Notify Provider Consults [RC] ASDIRECTED - Assessment/Plan Last 24 Hours: My Active Orders 10/05/19 15:46 Consult to Physician [CONS] Stat 10/05/19 15:48 Notify Provider Consults [RC] ASDIRECTED
[2019-10-05] MEDS ORDERED: Hyoscyamine 0.125 MG Tab.SL SL ONE (13:46)
--- NOTE | 2019-10-05 14:06 | CR ---
Abdomen: Supine and upright views the abdomen were obtained. Bowel gas pattern is normal. No abnormal calcifications or soft tissue abnormality is seen. Bony structures appear within normal limits for the patient's age. No free air is seen. Impression: 1. Nothing acute is seen on 2 view abdominal x-ray. Diagnostic code #1 This report was dictated in MDT
[2019-10-05] MEDS ORDERED: HYDROmorphone 0.5 MG/0.5 ML Syringe IM ONE (14:20)
[2019-10-05] MEDS ORDERED: Ondansetron 4 MG Tab.DIS PO ONE (14:21)
--- NOTE | 2019-10-05 15:24 | US ---
Limited abdominal ultrasound: Multiple real-time images of the upper right abdomen were obtained. Comparison: Prior abdominal x-ray performed earlier on same day (12:58 PM). Liver shows no focal parenchymal abnormality. Gallbladder shows possible minimal gallbladder wall thickening. Possible minimal pericholecystic fluid around a portion of the gallbladder. No biliary duct dilatation is seen. Small amount of sludge is seen within the gallbladder with several scattered small gallstones. Right kidney shows no hydronephrosis or mass. Right kidney has a length of 9.7 cm. Pancreas incompletely seen, visualized portions of the pancreas show no discrete abnormality is seen. Portal vein shows normal hepatopedal flow. Impression: 1. Slightly abnormal gallbladder as described above. Difficult to exclude early cholecystitis. Diagnostic code #3 This report was dictated in MDT Who who
[2019-10-05] MEDS ORDERED: Sodium Chloride 0.9% 10 ML Syringe FLUSH PRN (16:08)
[2019-10-05] MEDS ORDERED: Morphine 2 MG/ML Syringe IVPUSH PRN (16:14)
[2019-10-05] MEDS ORDERED: Lactated Ringers 1,000 ML IV SCH (16:15)
--- NOTE | 2019-10-05 16:24 | PCM.HP.2 ---
H&P History of Present Illness - General Date of Service: 10/05/19 Admit Problem/Dx: Admission Diagnosis/Problem Admission Diagnosis/Problem Acute cholecystitis due to biliary calculus Source of Information: Patient History Limitations: Reports: No Limitations - History of Present Illness Initial Comments - Free Text/Narative: Ms. Esquivel is a 34 yo woman presenting with epigastric pain. She has never had this pain before. It began about around 10 am today, prior to that she felt like her normal self. After the onset of pain, she vomited, which provided some relief. At the time of exam, the patient's pain has abated. She indicates the pain is centered at the midline epigastrium. She reports no medical problems and takes no medications, though she recently had a spontaneous . She has had no prior abdominal operations. She moved from [facility], her home, to the about one year ago. She denies any history of hepatitis, infectious disease, or sickle cell. Her lab work is significant for elevation of AST/ALT, GGT, without elevation of bilirubin or lipase. RUQ US shows small gallstones and findings consistent with early cholecystitis including some wall thickening and pericholecystic fluid. Onset of Symptoms: Reports: Today Abdomen Pain Score (Numeric/FACES): 8 - Related Data Allergies/Adverse Reactions: Allergies Allergy/AdvReac Type Severity Reaction Status Date / Time No Known Allergies Allergy Verified 09/08/19 16:21 Home Medications: Home Meds Docusate Sodium [Colace] 100 mg PO BID PRN cap 09/09/19 [Rx] 147/Iron/Folic Acid [Azesco Tablet] 1 tab PO DAILY 10/05/19 [History] 95/Iron Fum/Folic/Dha [ + Dha Combo Pack] 1 tab PO DAILY 10/05/19 [History] Past Medical History - Past Health History Medical/Surgical History: Denies Medical/Surgical History [employer] History: Reports: , Spontaneous , Other (See Below) Other OB/BYN History: miscarriage at 21 weeks gestation 09/08/2019 - Past Surgical History Female Surgical History: Reports: D&C Social & Family History - Family History Family Medical History: Noncontributory - Tobacco Use Smoking Status *Q: Never Smoker - Caffeine Use Caffeine Use: Reports: None - Recreational Drug Use Recreational Drug Use: No H&P Review of Systems - Review of Systems: Review Of Systems: See Below General: Reports: No Symptoms HEENT: Reports: No Symptoms Pulmonary: Reports: No Symptoms Cardiovascular: Reports: No Symptoms Gastrointestinal: Reports: Abdominal Pain, Vomiting Skin: Reports: No Symptoms Hematologic/Lymphatic: Reports: No Symptoms Exam - Exam Exam: See Below - Vital Signs Vital Signs: Last Vital Signs Temp -13.4 C L 10/05/19 12:06 Pulse 90 10/05/19 12:06 Resp 20 10/05/19 12:06 BP 120/83 10/05/19 12:06 Pulse Ox 100 10/05/19 12:06 Weight: 83.461 kg - Exam General: Alert, Oriented, Cooperative HEENT: Conjunctiva Clear Lungs: Clear to Auscultation, Normal Respiratory Effort Cardiovascular: Regular Rate, Regular Rhythm GI/Abdominal Exam: Soft, Non-Tender, No Mass Extremities: Normal Inspection Skin: Warm, Dry Neuro Extensive - Mental Status: Oriented x3, Normal Mood/Affect - Patient Data Lab Results Last 24 hrs: Laboratory Results - last 24 hr 10/05/19 10/05/19 10/05/19 Range/Units 12:30 12:30 12:45 WBC 8.33 (3.98-10.04) K/mm3 RBC 5.51 H (3.98-5.22) M/mm3 Hgb 15.1 D (11.2-15.7) gm/dl Hct 46.0 H (34.1-44.9) % MCV 83.5 (79.4-94.8) fl MCH 27.4 (25.6-32.2) pg MCHC 32.8 (32.2-35.5) g/dl RDW Std Deviation 41.4 (36.4-46.3) fL Plt Count 266 (182-369) K/mm3 MPV 11.3 (9.4-12.3) fl Neutrophils % (Manual) 55 (40-60) % Band Neutrophils % 0 (0-10) % Lymphocytes % (Manual) 39 (20-40) % Atypical Lymphs % 0 % Monocytes % (Manual) 6 (2-10) % Eosinophils % (Manual) 0 L (0.7-5.8) % Basophils % (Manual) 0 L (0.1-1.2) Platelet Estimate Adequate RBC Morph Comment Normal Sodium 139 (136-145) mEq/L Potassium 3.6 (3.5-5.1) mEq/L Chloride 102 (98-107) mEq/L Carbon Dioxide 25 (21-32) mEq/L Anion Gap 15.6 H (5-15) BUN 6 L (7-18) mg/dL Creatinine 0.7 (0.55-1.02) mg/dL Est Cr Clr Drug Dosing 85.45 mL/min Estimated GFR (MDRD) > 60 (>60) mL/min BUN/Creatinine Ratio 8.6 L (14-18) Glucose 78 (74-106) mg/dL Calcium 9.7 (8.5-10.1) mg/dL Total Bilirubin 0.6 (0.2-1.0) mg/dL GGT 250 H (5-55) U/L AST 166 H (15-37) U/L ALT 76 H (14-59) U/L Alkaline Phosphatase 127 H (46-116) U/L Total Protein 8.7 H (6.4-8.2) g/dl Albumin 4.3 (3.4-5.0) g/dl Globulin 4.4 gm/dL Albumin/Globulin Ratio 1.0 (1-2) Lipase 137 (73-393) U/L Urine Color (Yellow) Urine Appearance (Clear) Urine pH (5.0-8.0) Ur Specific [place] (1.005-1.030) Urine Protein (Negative) Urine Glucose (UA) (Negative) Urine Ketones (Negative) Urine Occult Blood (Negative) Urine Nitrite (Negative) Urine Bilirubin (Negative) Urine Urobilinogen (0.2-1.0) Ur Leukocyte Esterase (Negative) Urine RBC (0-5) /hpf Urine WBC (0-5) /hpf Ur Squamous Epith Cells (0-5) /hpf Urine Bacteria (FEW) /hpf Urine Mucus (FEW) /hpf // Range/Units 13:20 WBC (3.98-10.04) K/mm3 RBC (3.98-5.22) M/mm3 Hgb (11.2-15.7) gm/dl Hct (34.1-44.9) % MCV (79.4-94.8) fl MCH (25.6-32.2) pg MCHC (32.2-35.5) g/dl RDW Std Deviation (36.4-46.3) fL Plt Count (182-369) K/mm3 MPV (9.4-12.3) fl Neutrophils % (Manual) (40-60) % Band Neutrophils % (0-10) % Lymphocytes % (Manual) (20-40) % Atypical Lymphs % % Monocytes % (Manual) (2-10) % Eosinophils % (Manual) (0.7-5.8) % Basophils % (Manual) (0.1-1.2) Platelet Estimate RBC Morph Comment Sodium (136-145) mEq/L Potassium (3.5-5.1) mEq/L Chloride (98-107) mEq/L Carbon Dioxide (21-32) mEq/L Anion Gap (5-15) BUN (7-18) mg/dL Creatinine (0.55-1.02) mg/dL Est Cr Clr Drug Dosing mL/min Estimated GFR (MDRD) (>60) mL/min BUN/Creatinine Ratio (14-18) Glucose (74-106) mg/dL Calcium (8.5-10.1) mg/dL Total Bilirubin (0.2-1.0) mg/dL GGT (5-55) U/L AST (15-37) U/L ALT (14-59) U/L Alkaline Phosphatase (46-116) U/L Total Protein (6.4-8.2) g/dl Albumin (3.4-5.0) g/dl Globulin gm/dL Albumin/Globulin Ratio (1-2) Lipase (73-393) U/L Urine Color Yellow (Yellow) Urine Appearance Clear (Clear) Urine pH 8.5 H (5.0-8.0) Ur Specific [place] 1.020 (1.005-1.030) Urine Protein Negative (Negative) Urine Glucose (UA) Negative (Negative) Urine Ketones Negative (Negative) Urine Occult Blood Negative (Negative) Urine Nitrite Negative (Negative) Urine Bilirubin Negative (Negative) Urine Urobilinogen 1.0 (0.2-1.0) Ur Leukocyte Esterase Negative (Negative) Urine RBC Not seen (0-5) /hpf Urine WBC Not seen (0-5) /hpf Ur Squamous Epith Cells 0-5 (0-5) /hpf Urine Bacteria Few (FEW) /hpf Urine Mucus Not seen (FEW) /hpf Result Diagrams: 10/05/19 12:30 10/05/19 12:45 Sepsis Event Note - Evaluation Sepsis Screening Result: No Definite Risk - Focused Exam Vital Signs: Vital Signs Temp Pulse Resp BP Pulse Ox 10/05/19 12:06 -13.4 C L 90 20 120/83 100 Date Exam was Performed: 10/05/19 Time Exam was Performed: 16:19 *Q Meaningful Use (ADM) - VTE Risk Assess *Q Each Risk Factor Represents 1 Point: Minor Surgery Planned, Obesity ( BMI > 25 kg/m2) Total Score 1 Point Risk Factors: 2 Problem List Initiated/Reviewed/Updated: Yes Orders Last 24hrs: Active Orders 24 hr Category Date Time Status Patient Status [ADT] Routine ADT 10/05/19 16:14 Ordered Activity as Tolerated [RC] .Routine Care 10/05/19 16:14 Ordered Antiembolic Devices [RC] PER UNIT ROUTINE Care 10/05/19 16:15 Ordered Notify Provider Consults [RC] ASDIRECTED Care 10/05/19 15:48 Active Oxygen Therapy [RC] PRN Care 10/05/19 16:14 Ordered Peripheral IV Care [RC] . DIRECTED Care 10/05/19 16:08 Active Vital Signs [RC] Q8H Care 10/05/19 16:14 Ordered Consult to Physician [CONS] Stat Cons 10/05/19 15:46 Active Nothing Per Oral Diet [DIET] Diet 10/06/19 Breakfast Ordered Regular Diet [DIET] Diet 10/05/19 Dinner Ordered CBC WITH AUTO DIFF [HEME] AM Lab 10/06/19 05:11 Ordered CMP [COMPREHENSIVE METABOLIC PN,CMP] [CHEM] AM Lab 10/06/19 05:11 Ordered CORONAVIRUS COVID-19 VERONIKA [MOLEC] Stat Lab 10/05/19 16:07 Ordered Heparin Sodium Med 10/05/19 16:15 Ordered 5,000 units SUBCUT Q8H Lactated Ringers @ 100 MLS/HR(1000ml Bag) Med 10/05/19 16:15 Ordered Lactated Ringers [Ringers, Lactated] 1,000 ml IV ASDIRECTED Morphine Sulfate [Morphine] Med 10/05/19 16:14 Ordered 1 mg IVPUSH Q4H PRN Sodium Chloride 0.9% [Saline Flush] Med 10/05/19 16:08 Active 10 ml FLUSH ASDIRECTED PRN Peripheral IV Insertion Adult [OM.PC] Routine Oth 10/05/19 16:08 Ordered Sequential Compression Device [OM.PC] Routine Oth 10/05/19 16:14 Ordered Resuscitation Status Routine Resus Stat 10/05/19 16:14 Ordered Medication Orders Heparin Sodium (Porcine) (Heparin Sodium) 5,000 units SUBCUT Q8H ZIYAD Lactated Ringer's (Ringers, Lactated) 1,000 mls @ 100 mls/hr IV ASDIRECTED [facility] Morphine Sulfate (Morphine) 1 mg IVPUSH Q4H PRN PRN Reason: Pain (severe 7-10) Sodium Chloride (Saline Flush) 10 ml FLUSH ASDIRECTED PRN PRN Reason: Keep Vein Open Assessment/Plan Comment:: Presentation and imaging findings are suggestive of acute calculous cholecystitis. Lab work raises the question of other hepatitides, especially given the patient's history of recent immigration from [place]. Plan for admission to observation unit and laparoscopic cholecystectomy tomorrow. -morphine prn pain -LR @ 100 cc/hr -regular diet, NPO after midnight -COVID screen -repeat labs in AM -heparin for dvt ppx -IV zosyn pre-operative -acute hepatitis panel ordered I reviewed the details of laparoscopic cholecystectomy, including plan discharge to home tomorrow if all goes well. I went over risks, including bleeding, infection, and bile duct injury. All questions were answered to the patient's satisfaction and informed consent was obtained in the emergency room. - Mortality Measure Prognosis:: Good
[2019-10-05] MEDS ORDERED: Piperacillin/Tazobactam 4.5 GM in Sodium Chloride 0.9% 100 ML IV ONE (17:00)
[2019-10-05] MEDS: Heparin Sodium 5,000 Units/ML Vial SUBCUT SCH (18:15)
[2019-10-06] MEDS: Piperacillin/Tazobactam 4.5 GM in Sodium Chloride 0.9% 100 ML IV SCH ×3 (00:18→17:40)
[2019-10-06] MEDS: Heparin Sodium 5,000 Units/ML Vial SUBCUT SCH ×3 (00:18→17:41)
--- NOTE | 2019-10-06 10:40 | PCM.PREANE ---
Preanesthetic Assessment - Procedure Proposed Procedure: lap choley - Anesthesia/Transfusion/Family Hx Anesthesia History: Prior Anesthesia Without Reaction Family History of Anesthesia Reaction: No Transfusion History: No Prior Transfusion(s) - Review of Systems General: No Symptoms Pulmonary: No Symptoms Cardiovascular: No Symptoms Gastrointestinal: Abdominal Pain (started yesterday am), Vomiting (yesterday) Neurological: No Symptoms Other: Reports: None - Physical Assessment NPO Status Date: 10/05/19 NPO Status Time: 22:30 Vital Signs: Last Vital Signs Temp 98.6 F 10/06/19 07:31 Pulse 78 10/06/19 07:31 Resp 14 10/06/19 07:31 BP 118/88 10/06/19 07:31 Pulse Ox 97 10/06/19 07:31 Height: 5 ft 1 in Weight: 82.01 kg ASA Class: 2 Mental Status: Alert & Oriented x3 Airway Class: Mallampati = 1 Dentition: Reports: Normal Dentition Thyro-Mental Finger Breadths: 3 Mouth Opening Finger Breadths: 3 ROM/Head Extension: Full Lungs: Clear to Auscultation, Normal Respiratory Effort Cardiovascular: Regular Rate, Regular Rhythm - Lab Values: Laboratory Last Values WBC 5.63 K/mm3 (3.98-10.04) 10/06/19 05:23 RBC 4.80 M/mm3 (3.98-5.22) 10/06/19 05:23 Hgb 13.1 gm/dl (11.2-15.7) D 10/06/19 05:23 Hct 40.2 % (34.1-44.9) 10/06/19 05:23 MCV 83.8 fl (79.4-94.8) 10/06/19 05:23 MCH 27.3 pg (25.6-32.2) 10/06/19 05:23 MCHC 32.6 g/dl (32.2-35.5) 10/06/19 05:23 RDW Std Deviation 40.8 fL (36.4-46.3) 10/06/19 05:23 Plt Count 260 K/mm3 (182-369) 10/06/19 05:23 MPV 11.9 fl (9.4-12.3) 10/06/19 05:23 Neut % (Auto) 44.0 % (34.0-71.1) 10/06/19 05:23 Lymph % (Auto) 45.5 % (19.3-51.7) 10/06/19 05:23 [place] % (Auto) 8.2 % (4.7-12.5) 10/06/19 05:23 Eos % (Auto) 2.1 (0.7-5.8) 10/06/19 05:23 Baso % (Auto) 0.2 % (0.1-1.2) 10/06/19 05:23 Neut # (Auto) 2.48 K/mm3 (1.56-6.13) 10/06/19 05:23 Lymph # (Auto) 2.56 K/mm3 (1.18-3.74) 10/06/19 05:23 Edgar # (Auto) 0.46 K/mm3 (0.24-0.36) H 10/06/19 05:23 Eos # (Auto) 0.12 K/mm3 (0.04-0.36) 10/06/19 05:23 Baso # (Auto) 0.01 K/mm3 (0.01-0.08) 10/06/19 05:23 Neutrophils % (Manual) 55 % (40-60) 10/05/19 12:30 Band Neutrophils % 0 % (0-10) 10/05/19 12:30 Lymphocytes % (Manual) 39 % (20-40) 10/05/19 12:30 Atypical Lymphs % 0 % 10/05/19 12:30 Monocytes % (Manual) 6 % (2-10) 10/05/19 12:30 Eosinophils % (Manual) 0 % (0.7-5.8) L 10/05/19 12:30 Basophils % (Manual) 0 (0.1-1.2) L 10/05/19 12:30 Platelet Estimate Adequate 10/05/19 12:30 RBC Morph Comment Normal 10/05/19 12:30 Sodium 138 mEq/L (136-145) 10/06/19 05:23 Potassium 3.0 mEq/L (3.5-5.1) L 10/06/19 05:23 Chloride 103 mEq/L (98-107) 10/06/19 05:23 Carbon Dioxide 25 mEq/L (21-32) 10/06/19 05:23 Anion Gap 13.0 (5-15) 10/06/19 05:23 BUN 4 mg/dL (7-18) L 10/06/19 05:23 Creatinine 0.7 mg/dL (0.55-1.02) 10/06/19 05:23 Est Cr Clr Drug Dosing 85.45 mL/min 10/06/19 05:23 Estimated GFR (MDRD) > 60 mL/min (>60) 10/06/19 05:23 BUN/Creatinine Ratio 5.7 (14-18) L 10/06/19 05:23 Glucose 81 mg/dL (74-106) 10/06/19 05:23 Calcium 8.7 mg/dL (8.5-10.1) 10/06/19 05:23 Total Bilirubin 0.8 mg/dL (0.2-1.0) 10/06/19 05:23 GGT 250 U/L (5-55) H 10/05/19 12:45 AST 294 U/L (15-37) H 10/06/19 05:23 ALT 345 U/L (14-59) H 10/06/19 05:23 Alkaline Phosphatase 148 U/L (46-116) H 10/06/19 05:23 Total Protein 6.8 g/dl (6.4-8.2) 10/06/19 05:23 Albumin 3.2 g/dl (3.4-5.0) L 10/06/19 05:23 Globulin 3.6 gm/dL 10/06/19 05:23 Albumin/Globulin Ratio 0.9 (1-2) L 10/06/19 05:23 Lipase 137 U/L (73-393) 10/05/19 12:30 Urine Color Yellow (Yellow) 10/05/19 13:20 Urine Appearance Clear (Clear) 10/05/19 13:20 Urine pH 8.5 (5.0-8.0) H 10/05/19 13:20 Ur Specific [place] 1.020 (1.005-1.030) 10/05/19 13:20 Urine Protein Negative (Negative) 10/05/19 13:20 Urine Glucose (UA) Negative (Negative) 10/05/19 13:20 Urine Ketones Negative (Negative) 10/05/19 13:20 Urine Occult Blood Negative (Negative) 10/05/19 13:20 Urine Nitrite Negative (Negative) 10/05/19 13:20 Urine Bilirubin Negative (Negative) 10/05/19 13:20 Urine Urobilinogen 1.0 (0.2-1.0) 10/05/19 13:20 Ur Leukocyte Esterase Negative (Negative) 10/05/19 13:20 Urine RBC Not seen /hpf (0-5) 10/05/19 13:20 Urine WBC Not seen /hpf (0-5) 10/05/19 13:20 Ur Squamous Epith Cells 0-5 /hpf (0-5) 10/05/19 13:20 Urine Bacteria Few /hpf (FEW) 10/05/19 13:20 Urine Mucus Not seen /hpf (FEW) 10/05/19 13:20 Urine HCG, Qual Negative (NEGATIVE) 10/05/19 13:20 SARS Virus RNA (PCR) Negative (NEGATIVE) 10/05/19 16:23 - Allergies Allergies/Adverse Reactions: Allergies Allergy/AdvReac Type Severity Reaction Status Date / Time No Known Allergies Allergy Verified 10/05/19 18:24 - Blood Blood Available: No - Acknowledgements Anesthesia Type Planned: General Anesthesia Pt an Appropriate Candidate for the Planned Anesthesia: Yes Alternatives and Risks of Anesthesia Discussed w Pt/Guardian: Yes Pt/Guardian Understands and Agrees with Anesthesia Plan: Yes PreAnesthesia Questionnaire - Past Health History Medical/Surgical History: Denies Medical/Surgical History HEENT History: Reports: None Cardiovascular History: Reports: None Respiratory History: Reports: None Gastrointestinal History: Reports: None [employer] History: Reports: , Spontaneous , Other (See Below) Other OB/BYN History: miscarriage at 21 weeks gestation 09/08/2019 Musculoskeletal History: Reports: None Endocrine/Metabolic History: Reports: Obesity/BMI 30+ - Infectious Disease History Infectious Disease History: Reports: Chicken Pox - Past Surgical History Female Surgical History: Reports: Other (See Below) Other Female Surgeries/Procedures: cervical being sewed shut - SUBSTANCE USE Smoking Status *Q: Never Smoker Tobacco Use Within Last Twelve Months: No Second Hand Smoke Exposure: Yes Days Per Week of Alcohol Use: 1 Recreational Drug Use History: No - HOME MEDS Home Medications: Home Meds Docusate Sodium [Colace] 100 mg PO BID PRN cap 09/09/19 [Rx] Ascorbic Acid [Vitamin C] 1,000 mg PO DAILY 10/05/19 [History] 147/Iron/Folic Acid [Azesco Tablet] 1 tab PO DAILY 10/05/19 [History] - CURRENT (IN HOUSE) MEDS Current Meds: Current Medications Heparin Sodium (Porcine) (Heparin Sodium) 5,000 units SUBCUT Q8H [facility] Last Admin: 10/06/19 08:37 Dose: 5,000 units Documented by: Lactated Ringer's (Ringers, Lactated) 1,000 mls @ 100 mls/hr IV ASDIRECTED [facility] Last Admin: 10/05/19 18:08 Dose: 100 mls/hr Documented by: Piperacillin Sod/Tazobactam (Sod 4.5 gm/ Sodium Chloride) 100 mls @ 25 mls/hr IV Q8H [facility] Last Admin: 10/06/19 08:36 Dose: 25 mls/hr Documented by: Morphine Sulfate (Morphine) 1 mg IVPUSH Q4H PRN PRN Reason: Pain (severe 7-10) Sodium Chloride (Saline Flush) 10 ml FLUSH ASDIRECTED PRN PRN Reason: Keep Vein Open Discontinued Medications Bupivacaine HCl/Epinephrine Bitart (Marcaine 0.5%/Epinephrine 1:200,000) Confirm Administered Dose 50 ml .ROUTE .STK-MED ONE Stop: 10/06/19 09:29 Al Hydroxide/Mg Hydroxide 30 (ml/ Lidocaine HCl 15 ml) 0 ml PO ONETIME ONE Stop: 10/05/19 12:16 Last Admin: 10/05/19 12:39 Dose: 45 ml Documented by: Hydromorphone HCl (Dilaudid) 0.5 mg IM ONETIME ONE Stop: 10/05/19 14:21 Last Admin: 10/05/19 14:32 Dose: 0.5 mg Documented by: Hyoscyamine (Hyomax-Sl) 0.125 mg SL ONETIME ONE Stop: 10/05/19 13:47 Last Admin: 10/05/19 14:04 Dose: 0.125 mg Documented by: Piperacillin Sod/Tazobactam (Sod 4.5 gm/ Sodium Chloride) 100 mls @ 200 mls/hr IV ONETIME ONE Stop: 10/05/19 17:29 Last Admin: 10/05/19 17:17 Dose: 200 mls/hr Documented by: Ondansetron HCl (Zofran Odt) 4 mg PO ONETIME ONE Stop: 10/05/19 14:22 Last Admin: 10/05/19 14:31 Dose: 4 mg Documented by:
[2019-10-06] MEDS ORDERED: Rocuronium 50 MG/5 ML Vial ONE (10:53)
[2019-10-06] MEDS ORDERED: fentaNYL 250 MCG/5 ML SDV ONE (10:53)
[2019-10-06] MEDS ORDERED: Lidocaine 1% 4 ML ONE (10:53)
[2019-10-06] MEDS ORDERED: Ondansetron 4 MG/2 ML SDV ONE (10:53)
[2019-10-06] MEDS ORDERED: Ketorolac 30 MG/ML SDV ONE (10:53)
[2019-10-06] MEDS ORDERED: Propofol 200 MG/20 ML SDV ONE (10:53)
[2019-10-06] MEDS ORDERED: Midazolam 1 MG/ML 2 ML SDV ONE (10:53)
[2019-10-06] MEDS ORDERED: Lactated Ringers 1,000 ML ONE (10:54)
[2019-10-06] MEDS ORDERED: Dexamethasone 4 MG/ML 5 ML MDV ONE (10:54)
[2019-10-06] MEDS: Potassium Chloride 10 MEQ in Premix Bag 1 BAG IV SCH ×2 (10:56→19:16)
[2019-10-06] MEDS ORDERED: HYDROmorphone 0.5 MG/0.5 ML Syringe IVPUSH PRN (11:32)
[2019-10-06] MEDS ORDERED: fentaNYL 100 MCG/2 ML SDV IVPUSH PRN (11:32)
[2019-10-06] MEDS ORDERED: Ondansetron 4 MG/2 ML SDV IVPUSH PRN ×2 (11:32→17:23)
[2019-10-06] MEDS: Bupivacaine 0.5%/EPINEPHrine 1:200,000 50 ML MDV ONE ×2 (11:35→11:56)
[2019-10-06] MEDS ORDERED: Labetalol 100 MG/20 ML MDV ONE (11:38)
[2019-10-06] MEDS ORDERED: HYDROmorphone 0.5 MG/0.5 ML Syringe ONE (11:45)
--- NOTE | 2019-10-06 12:27 | PCM.PRNOTE ---
- Free Text/Narrative Note: Operative Report Operation: laparoscopic cholecystectomy Date: 10/06/2019 Attending Surgeon: Yoel Singh MD Indication for Surgery: acute calculous cholecystitis Preoperative antibiotics: zosyn VTE prophylaxis: SCDs, subcutaneous heparin 5000 u Estimated Blood Loss: 10 cc Findings: acute cholecystitis. Critical view of safety obtained. Detailed Report: The patient underwent general endotracheal anesthesia after being placed supine on the operating table and initial timeout. The abdomen was prepped and draped in sterile fashion. A pre-incision timeout was performed confirming the patients identity and the operation to be performed. A Veress needle was inserted into the abdominal cavity below the left costal margin along the mid- clavicular line. The abdomen was insufflated with CO2 to 15 mm Hg. Gas was aspirated below the umbilicus with a syringe in order to ensure safe placement of a 5 mm bladed laparoscopic port. The 5mm 30 degree laparoscope was then inserted and viscera inspected. The gallbladder appeared acutely inflamed. Two additional 5 mm ports were placed along the right subcostal region under direct vision with the laparoscope, and a 12 mm port was placed at the subxiphoid region. The gallbladder was grasped at the fundus with a locking grasper and retracted anteriorly and superiorly, exposing the infundibulum. This was grasped with the surgeons left hand grasper and retracted laterally. The hook electrode was used to open the overlying peritoneum, and this plane of dissection was developed along the edges of the gallbladder at its interface with the liver bed. A combination of hook electrode, blunt dissection with the suction talent engineer and laparoscopic Kittner dissector, and the [place] grasper were used to carefully expose and skeletonize the cystic duct and artery. A critical view of safety was obtained. Metal clips were then placed on both structures. The duct and artery were transected with laparoscopic scissors between the metal clips. The hook was then used to dissect the gallbladder free from its attachment to the liver. The specimen was then placed in an Endocatch bag and removed through the subxiphoid port. The liver bed was inspected and appeared hemostatic. The larger subxiphoid port was closed at the level of the fascia with vicryl suture using the PMI laparoscopic suture passer. Pneumoperitoneum was then released. All skin incisions were then closed with placement of subcuticular vicryl suture and dressed with dermabond. A total of 30 cc 0.5% marcaine with epinephrine was used for local anesthesia at the incision sites. The patient tolerated the operation well, was extubated in the operating room and transferred to the PACU for routine post-anesthesia care.
--- NOTE | 2019-10-06 12:31 | PCM.DCSUM1 ---
Discharge Summary - Hospital Course Free Text/Narrative:: Admitted with RUQ pain and findings consistent with acute cholecystitis from the emergency department yesterday afternoon. Her AST/ALT were elevated, and increased, while admitted, raising suspicion for possible acute hepatitis. Serum Potassium was low at 3.0; she received a Potassium infusion prior to going to the OR. The plan to perform laparoscopic cholecystectomy was executed without problems, and there did appear to be acute calculous cholecystitis. Postoperatively, she was deemed fit for discharge to home with adequate pain control, tolerating a diet. Plan for routine post-op follow up regarding cholecystectomy, with PCP follow up for monitoring of any hepatic pathology. - Discharge Data Discharge Date: 10/06/19 Discharge Disposition: Home, Self-Care 01 Condition: Good - Referral to Home Health Primary Care Physician: Cynthia Christiansen MD - Patient Summary/Data Consults: Consultations 10/05/19 15:46 Consult to Physician [CONS] Stat - Patient Instructions Diet: Usual Diet as Tolerated Activity: No Lifting Over 10 Pounds Showering/Bathing: May Shower Wound/Incision Care: Keep Operative Site/Wound Site Clean and Dry Notify Provider of: Fever, Increased Pain, Swelling and Redness, Drainage, Nausea and/or Vomiting - Discharge Plan *PRESCRIPTION DRUG MONITORING PROGRAM REVIEWED*: No *COPY OF PRESCRIPTION DRUG MONITORING REPORT IN PATIENT WOOD: No Prescriptions/Med Rec: oxyCODONE 5 mg PO Q4H PRN #15 tab PRN Reason: Pain Home Medications: Home Meds Docusate Sodium [Colace] 100 mg PO BID PRN cap 09/09/19 [Rx] Ascorbic Acid [Vitamin C] 1,000 mg PO DAILY 10/05/19 [History] 147/Iron/Folic Acid [Azesco Tablet] 1 tab PO DAILY 10/05/19 [History] oxyCODONE 5 mg PO Q4H PRN #15 tab 10/06/19 [Rx] Oxygen Therapy Mode: Room Air Forms: ED Department Discharge Referrals: Cynthia Christiansen MD [Primary Care Provider] - - Discharge Summary/Plan Comment DC Time >30 min.: No - Patient Data Vitals - Most Recent: Last Vital Signs Temp 37.0 C 10/06/19 07:31 Pulse 78 10/06/19 07:31 Resp 14 10/06/19 07:31 BP 118/88 10/06/19 07:31 Pulse Ox 97 10/06/19 07:31 Weight - Most Recent: 82.01 kg I&O - Last 24 hours: Intake & Output 10/05/19 10/06/19 10/06/19 22:59 06:59 14:59 Intake Total 0 1086 Output Total 1250 Balance 0 -164 Lab Results - Last 24 hrs: Laboratory Results - last 24 hr 10/05/19 10/05/19 10/05/19 Range/Units 12:30 12:30 12:45 WBC 8.33 (3.98-10.04) K/mm3 RBC 5.51 H (3.98-5.22) M/mm3 Hgb 15.1 D (11.2-15.7) gm/dl Hct 46.0 H (34.1-44.9) % MCV 83.5 (79.4-94.8) fl MCH 27.4 (25.6-32.2) pg MCHC 32.8 (32.2-35.5) g/dl RDW Std Deviation 41.4 (36.4-46.3) fL Plt Count 266 (182-369) K/mm3 MPV 11.3 (9.4-12.3) fl Neut % (Auto) (34.0-71.1) % Lymph % (Auto) (19.3-51.7) % [place] % (Auto) (4.7-12.5) % Eos % (Auto) (0.7-5.8) Baso % (Auto) (0.1-1.2) % Neut # (Auto) (1.56-6.13) K/mm3 Lymph # (Auto) (1.18-3.74) K/mm3 [place] # (Auto) (0.24-0.36) K/mm3 Eos # (Auto) (0.04-0.36) K/mm3 Baso # (Auto) (0.01-0.08) K/mm3 Neutrophils % (Manual) 55 (40-60) % Band Neutrophils % 0 (0-10) % Lymphocytes % (Manual) 39 (20-40) % Atypical Lymphs % 0 % Monocytes % (Manual) 6 (2-10) % Eosinophils % (Manual) 0 L (0.7-5.8) % Basophils % (Manual) 0 L (0.1-1.2) Platelet Estimate Adequate RBC Morph Comment Normal Sodium 139 (136-145) mEq/L Potassium 3.6 (3.5-5.1) mEq/L Chloride 102 (98-107) mEq/L Carbon Dioxide 25 (21-32) mEq/L Anion Gap 15.6 H (5-15) BUN 6 L (7-18) mg/dL Creatinine 0.7 (0.55-1.02) mg/dL Est Cr Clr Drug Dosing 85.45 mL/min Estimated GFR (MDRD) > 60 (>60) mL/min BUN/Creatinine Ratio 8.6 L (14-18) Glucose 78 (74-106) mg/dL Calcium 9.7 (8.5-10.1) mg/dL Total Bilirubin 0.6 (0.2-1.0) mg/dL GGT 250 H (5-55) U/L AST 166 H (15-37) U/L ALT 76 H (14-59) U/L Alkaline Phosphatase 127 H (46-116) U/L Total Protein 8.7 H (6.4-8.2) g/dl Albumin 4.3 (3.4-5.0) g/dl Globulin 4.4 gm/dL Albumin/Globulin Ratio 1.0 (1-2) Lipase 137 (73-393) U/L Urine Color (Yellow) Urine Appearance (Clear) Urine pH (5.0-8.0) Ur Specific [place] (1.005-1.030) Urine Protein (Negative) Urine Glucose (UA) (Negative) Urine Ketones (Negative) Urine Occult Blood (Negative) Urine Nitrite (Negative) Urine Bilirubin (Negative) Urine Urobilinogen (0.2-1.0) Ur Leukocyte Esterase (Negative) Urine RBC (0-5) /hpf Urine WBC (0-5) /hpf Ur Squamous Epith Cells (0-5) /hpf Urine Bacteria (FEW) /hpf Urine Mucus (FEW) /hpf Urine HCG, Qual (NEGATIVE) SARS Virus RNA (PCR) (NEGATIVE) 10/05/19 10/05/19 10/05/19 Range/Units 13:20 13:20 16:23 WBC (3.98-10.04) K/mm3 RBC (3.98-5.22) M/mm3 Hgb (11.2-15.7) gm/dl Hct (34.1-44.9) % MCV (79.4-94.8) fl MCH (25.6-32.2) pg MCHC (32.2-35.5) g/dl RDW Std Deviation (36.4-46.3) fL Plt Count (182-369) K/mm3 MPV (9.4-12.3) fl Neut % (Auto) (34.0-71.1) % Lymph % (Auto) (19.3-51.7) % [place] % (Auto) (4.7-12.5) % Eos % (Auto) (0.7-5.8) Baso % (Auto) (0.1-1.2) % Neut # (Auto) (1.56-6.13) K/mm3 Lymph # (Auto) (1.18-3.74) K/mm3 [place] # (Auto) (0.24-0.36) K/mm3 Eos # (Auto) (0.04-0.36) K/mm3 Baso # (Auto) (0.01-0.08) K/mm3 Neutrophils % (Manual) (40-60) % Band Neutrophils % (0-10) % Lymphocytes % (Manual) (20-40) % Atypical Lymphs % % Monocytes % (Manual) (2-10) % Eosinophils % (Manual) (0.7-5.8) % Basophils % (Manual) (0.1-1.2) Platelet Estimate RBC Morph Comment Sodium (136-145) mEq/L Potassium (3.5-5.1) mEq/L Chloride (98-107) mEq/L Carbon Dioxide (21-32) mEq/L Anion Gap (5-15) BUN (7-18) mg/dL Creatinine (0.55-1.02) mg/dL Est Cr Clr Drug Dosing mL/min Estimated GFR (MDRD) (>60) mL/min BUN/Creatinine Ratio (14-18) Glucose (74-106) mg/dL Calcium (8.5-10.1) mg/dL Total Bilirubin (0.2-1.0) mg/dL GGT (5-55) U/L AST (15-37) U/L ALT (14-59) U/L Alkaline Phosphatase (46-116) U/L Total Protein (6.4-8.2) g/dl Albumin (3.4-5.0) g/dl Globulin gm/dL Albumin/Globulin Ratio (1-2) Lipase (73-393) U/L Urine Color Yellow (Yellow) Urine Appearance Clear (Clear) Urine pH 8.5 H (5.0-8.0) Ur Specific [place] 1.020 (1.005-1.030) Urine Protein Negative (Negative) Urine Glucose (UA) Negative (Negative) Urine Ketones Negative (Negative) Urine Occult Blood Negative (Negative) Urine Nitrite Negative (Negative) Urine Bilirubin Negative (Negative) Urine Urobilinogen 1.0 (0.2-1.0) Ur Leukocyte Esterase Negative (Negative) Urine RBC Not seen (0-5) /hpf Urine WBC Not seen (0-5) /hpf Ur Squamous Epith Cells 0-5 (0-5) /hpf Urine Bacteria Few (FEW) /hpf Urine Mucus Not seen (FEW) /hpf Urine HCG, Qual Negative (NEGATIVE) SARS Virus RNA (PCR) Negative (NEGATIVE) 10/06/19 10/06/19 Range/Units 05:23 05:23 WBC 5.63 (3.98-10.04) K/mm3 RBC 4.80 (3.98-5.22) M/mm3 Hgb 13.1 D (11.2-15.7) gm/dl Hct 40.2 (34.1-44.9) % MCV 83.8 (79.4-94.8) fl MCH 27.3 (25.6-32.2) pg MCHC 32.6 (32.2-35.5) g/dl RDW Std Deviation 40.8 (36.4-46.3) fL Plt Count 260 (182-369) K/mm3 MPV 11.9 (9.4-12.3) fl Neut % (Auto) 44.0 (34.0-71.1) % Lymph % (Auto) 45.5 (19.3-51.7) % [place] % (Auto) 8.2 (4.7-12.5) % Eos % (Auto) 2.1 (0.7-5.8) Baso % (Auto) 0.2 (0.1-1.2) % Neut # (Auto) 2.48 (1.56-6.13) K/mm3 Lymph # (Auto) 2.56 (1.18-3.74) K/mm3 [place] # (Auto) 0.46 H (0.24-0.36) K/mm3 Eos # (Auto) 0.12 (0.04-0.36) K/mm3 Baso # (Auto) 0.01 (0.01-0.08) K/mm3 Neutrophils % (Manual) (40-60) % Band Neutrophils % (0-10) % Lymphocytes % (Manual) (20-40) % Atypical Lymphs % % Monocytes % (Manual) (2-10) % Eosinophils % (Manual) (0.7-5.8) % Basophils % (Manual) (0.1-1.2) Platelet Estimate RBC Morph Comment Sodium 138 (136-145) mEq/L Potassium 3.0 L (3.5-5.1) mEq/L Chloride 103 (98-107) mEq/L Carbon Dioxide 25 (21-32) mEq/L Anion Gap 13.0 (5-15) BUN 4 L (7-18) mg/dL Creatinine 0.7 (0.55-1.02) mg/dL Est Cr Clr Drug Dosing 85.45 mL/min Estimated GFR (MDRD) > 60 (>60) mL/min BUN/Creatinine Ratio 5.7 L (14-18) Glucose 81 (74-106) mg/dL Calcium 8.7 (8.5-10.1) mg/dL Total Bilirubin 0.8 (0.2-1.0) mg/dL GGT (5-55) U/L AST 294 H (15-37) U/L ALT 345 H (14-59) U/L Alkaline Phosphatase 148 H (46-116) U/L Total Protein 6.8 (6.4-8.2) g/dl Albumin 3.2 L (3.4-5.0) g/dl Globulin 3.6 gm/dL Albumin/Globulin Ratio 0.9 L (1-2) Lipase (73-393) U/L Urine Color (Yellow) Urine Appearance (Clear) Urine pH (5.0-8.0) Ur Specific [place] (1.005-1.030) Urine Protein (Negative) Urine Glucose (UA) (Negative) Urine Ketones (Negative) Urine Occult Blood (Negative) Urine Nitrite (Negative) Urine Bilirubin (Negative) Urine Urobilinogen (0.2-1.0) Ur Leukocyte Esterase (Negative) Urine RBC (0-5) /hpf Urine WBC (0-5) /hpf Ur Squamous Epith Cells (0-5) /hpf Urine Bacteria (FEW) /hpf Urine Mucus (FEW) /hpf Urine HCG, Qual (NEGATIVE) SARS Virus RNA (PCR) (NEGATIVE) Med Orders - Current: Current Medications Fentanyl (Sublimaze) 50 mcg IVPUSH Q5M PRN PRN Reason: Pain Stop: 10/06/19 14:00 Heparin Sodium (Porcine) (Heparin Sodium) 5,000 units SUBCUT Q8H [facility] Last Admin: 10/06/19 08:37 Dose: 5,000 units Documented by: Hydromorphone HCl (Dilaudid) 0.5 mg IVPUSH Q10M PRN PRN Reason: Pain (severe 7-10) Stop: 10/06/19 14:00 Lactated Ringer's (Ringers, Lactated) 1,000 mls @ 100 mls/hr IV ASDIRECTED [facility] Last Admin: 10/05/19 18:08 Dose: 100 mls/hr Documented by: Piperacillin Sod/Tazobactam (Sod 4.5 gm/ Sodium Chloride) 100 mls @ 25 mls/hr IV Q8H [facility] Last Admin: 10/06/19 08:36 Dose: 25 mls/hr Documented by: Potassium Chloride 10 meq/ (Premix) 100 mls @ 100 mls/hr IV Q1H [facility] Stop: 10/06/19 14:59 Last Admin: 10/06/19 10:56 Dose: 100 mls/hr Documented by: Morphine Sulfate (Morphine) 1 mg IVPUSH Q4H PRN PRN Reason: Pain (severe 7-10) Ondansetron HCl (Zofran) 4 mg IVPUSH ONETIME PRN PRN Reason: Nausea/Vomiting Stop: 10/06/19 14:00 Sodium Chloride (Saline Flush) 10 ml FLUSH ASDIRECTED PRN PRN Reason: Keep Vein Open Discontinued Medications Bupivacaine HCl/Epinephrine Bitart (Marcaine 0.5%/Epinephrine 1:200,000) Confirm Administered Dose 50 ml .ROUTE .STK-MED ONE Stop: 10/06/19 09:29 Last Admin: 10/06/19 11:56 Dose: 50 ml Documented by: Al Hydroxide/Mg Hydroxide 30 (ml/ Lidocaine HCl 15 ml) 0 ml PO ONETIME ONE Stop: 10/05/19 12:16 Last Admin: 10/05/19 12:39 Dose: 45 ml Documented by: Dexamethasone (Dexamethasone) Confirm Administered Dose 20 mg .ROUTE .STK-MED ONE Stop: 10/06/19 10:55 Fentanyl (Sublimaze) Confirm Administered Dose 250 mcg .ROUTE .STK-MED ONE Stop: 10/06/19 10:54 Glycopyrrolate () Confirm Administered Dose 1 mg .ROUTE .STK-MED ONE Stop: 10/06/19 12:07 Hydromorphone HCl (Dilaudid) 0.5 mg IM ONETIME ONE Stop: 10/05/19 14:21 Last Admin: 10/05/19 14:32 Dose: 0.5 mg Documented by: Hydromorphone HCl (Dilaudid) Confirm Administered Dose 0.5 mg .ROUTE .STK-MED ONE Stop: 10/06/19 11:46 Hyoscyamine (Hyomax-Sl) 0.125 mg SL ONETIME ONE Stop: 10/05/19 13:47 Last Admin: 10/05/19 14:04 Dose: 0.125 mg Documented by: Piperacillin Sod/Tazobactam (Sod 4.5 gm/ Sodium Chloride) 100 mls @ 200 mls/hr IV ONETIME ONE Stop: 10/05/19 17:29 Last Admin: 10/05/19 17:17 Dose: 200 mls/hr Documented by: Lidocaine HCl (Xylocaine-Mpf 1%) Confirm Administered Dose 4 mls @ as directed .ROUTE .STK-MED ONE Stop: 10/06/19 10:54 Lactated Ringer's (Ringers, Lactated) Confirm Administered Dose 1,000 mls @ as directed .ROUTE .STK-MED ONE Stop: 10/06/19 10:55 Ketorolac Tromethamine (Toradol) Confirm Administered Dose 30 mg .ROUTE .STK-MED ONE Stop: 10/06/19 10:54 Labetalol HCl (Normodyne) Confirm Administered Dose 100 mg .ROUTE .STK-MED ONE Stop: 06/30/20 11:39 Midazolam HCl (Versed 1 Mg/Ml) Confirm Administered Dose 2 mg .ROUTE .STK-MED ONE Stop: 10/06/19 10:54 Neostigmine Methylsulfate (Neostigmine Methylsulfate) Confirm Administered Dose 5 mg .ROUTE .STK-MED ONE Stop: 10/06/19 12:07 Ondansetron HCl (Zofran Odt) 4 mg PO ONETIME ONE Stop: 10/05/19 14:22 Last Admin: 10/05/19 14:31 Dose: 4 mg Documented by: Ondansetron HCl (Zofran) Confirm Administered Dose 4 mg .ROUTE .STK-MED ONE Stop: 10/06/19 10:54 Propofol (Diprivan 20 Ml) Confirm Administered Dose 200 mg .ROUTE .STK-MED ONE Stop: 10/06/19 10:54 Rocuronium T[place] (Zemuron) Confirm Administered Dose 50 mg .ROUTE .STK-MED ONE Stop: 10/06/19 10:54
--- NOTE | 2019-10-06 13:35 | PCM48HPAN ---
Post Anesthesia Note - EVALUATION WITHIN 48HRS OF ANESTHETIC Vital Signs in Normal Range: Yes Patient Participated in Evaluation: Yes Respiratory Function Stable: Yes Airway Patent: Yes Cardiovascular Function Stable: Yes Hydration Status Stable: Yes Pain Control Satisfactory: Yes Nausea and Vomiting Control Satisfactory: Yes Mental Status Recovered: Yes Vital Signs: Last Vital Signs Temp 97.7 F 10/06/19 13:15 Pulse 78 10/06/19 07:31 Resp 18 10/06/19 13:15 BP 117/74 10/06/19 13:15 Pulse Ox 97 10/06/19 13:15
--- NOTE | 2019-10-06 15:32 | PCM.POSTAN ---
POST ANESTHESIA ASSESSMENT - MENTAL STATUS Mental Status: Somnolent - VITAL SIGNS Vital Signs: Last Vital Signs Temp 97.7 F 10/06/19 13:15 Pulse 78 10/06/19 07:31 Resp 18 10/06/19 13:15 BP 117/74 10/06/19 13:15 Pulse Ox 97 10/06/19 13:15 - RESPIRATORY Respiratory Status: Respiratory Rate WNL, Airway Patent, O2 Saturation Stable, Supplemental Oxygen - CARDIOVASCULAR CV Status: Pulse Rate WNL, Blood Pressure Stable - GASTROINTESTINAL GI Status: No Symptoms - PAIN Pain Score: 0 - POST OP HYDRATION Hydration Status: Adequate & Stable
[2019-10-06] MEDS: oxyCODONE 5 MG Tab PO PRN ×2 (16:20→20:18)
[2019-10-06] MEDS ORDERED: Ondansetron 4 MG in Sodium Chloride 0.9% 50 ML IV PRN (17:15)
[2019-10-06] MEDS ORDERED: Ondansetron 4 MG/2 ML SDV IV PRN (17:23)
[2019-10-06] MEDS ORDERED: oxyCODONE 5 MG Tab PO ONE (22:14)
== END 2019-10-06 22:22 | disposition home or self-care (01) ==
LOC: JD.ED 11:33 → JD.MS 16:14
PROVIDERS: ADMIT Surgery; ATTEND Surgery
DX: K80.12 Calculus of gallbladder with acute and chronic cholecystitis without obstruction (principal); E66.9 Obesity, unspecified; Z68.34 Body mass index [BMI] 34.0-34.9, adult
CPT/HCPCS: 36415; 47562; 74019; 76705; 80053; 81001; 81025; 82977; 83690; 85007; 85025; 85027; 87635; 96365; 96366; 96372; 96375; 99285; A9270; G0378; J1100; J1170; J1644; J1885; J2001; J2250; J2270; J2405; J2543; J2704; J2710; J3010; J3480; J3490; J7050; J7120; U0002